=== PATIENT | female | born 1965 | race Caucasian/White ===

== ENCOUNTER 2017-04-03 17:57 | Emergency (ER) | payer MEDICAID ==
[~2017-04-03] VITALS: Ht 165.1 cm; Wt 68.0 kg
[~2017-04-03 17:57] MED LIST: ACYCLOVIR400 MG PO; ALBUTEROL2.5 MG/3 M HHN; AUGMENTIN 500-1 EACH PO; AUGMENTIN 875-1 EAC1 ORAL; BACTRIM DS TAB1 EAC1 ORAL; CORTISPORIN EAR10 M1 BOTH EARS; FLOXIN OTIC10 DROP OT; GUAIFENESIN-CO118 M1 ORAL; GUAIFENESIN-CO118 M1 PO; IMITREX25 MG PO; KEFLEX500 MG ORAL; KENALOG 0.025%15 GM SUBQ; NORCO 5-325 TA1 EACH ORAL; PREDNISONE10 M1 PO; VALIUM10 MG PO; VICODIN 5-5001 EACH PO; XOPENEX0.63 MG/3 IH; [UNRECOGNIZED DRUG - OTHER] BOTH EYES
[2017-04-03 18:04] VITALS: BP 131/83
[2017-04-03] MEDS ORDERED: ACETAMINOPHEN-1 EAC1 ORAL (18:18)
[2017-04-03] MEDS ORDERED: CLINDAMYCIN HC300 MG ORAL (18:18)
--- NOTE | 2017-04-03 18:19 | Emergency Room Report ---
History of Present Illness General Chief Complaint: Toothache Source: Patient, Medical Record Present Illness HPI 51 y.o female c/o tooth pain x 3 days. States she has hx of dental caries and has an appt with dentist on Wednesday. States she took augmentin but felt she was having AE from it and is asking for clindamycin instead. States that she is taking ibuprofen for her pain w/ mild relief. Worse with eating. No other modifying factors. Denies any current n/v/f/c/d, abd pain, back pain, neck pain , photophobia, phonophobia, angioedema, CP, SOB or headache. Allergies: Coded Allergies: DOXYCYCLINE (Verified Allergy, Mild, Rash, 12/14/11) AZITHROMYCIN (Verified Allergy, Unknown, 05/30/15) Patient History Past Medical History: see triage record Last Menstrual Period: menopause Reviewed Nursing Documentation: PMH: Agreed, PSxH: Agreed Nursing Documentation-PMH Past Medical History: No History, Except For Hx Cardiac Problems: No Hx Hypertension: No Hx Pacemaker: No Hx Asthma: Yes Hx COPD: No Hx Diabetes: No Hx Cancer: No Hx Gastrointestinal Problems: Yes - Hepatitis C Hx Dialysis: No Hx Neurological Problems: No Hx Cerebrovascular Accident: No Hx Seizures: No Review of Systems All Other Systems: negative except mentioned in HPI Physical Exam Vital Signs Date Time Temp Pulse Resp B/P (MAP) Pulse Ox O2 Delivery O2 Flow Rate FiO2 04/03/17 18:04 97.5 76 18 131/83 97 Room Air Sp02 EP Interpretation: reviewed, normal General Appearance: no apparent distress, alert, GCS 15, non-toxic Head: normocephalic, atraumatic Eyes: bilateral eye normal inspection, bilateral eye PERRL ENT: hearing grossly normal, normal pharynx, no angioedema, normal voice, other - poor dentitian with dental caries. Patient has tooth fracture of right lower molar. No abscess present. Neck: full range of motion, supple/symm/no masses Respiratory: chest non-tender, lungs clear, normal breath sounds, speaking full sentences Cardiovascular #1: regular rate, rhythm, no edema Musculoskeletal: gait/station normal Neurologic: alert, oriented x3, responsive, motor strength/tone normal, sensory intact, speech normal Psychiatric: judgement/insight normal, memory normal, mood/affect normal, no suicidal/homicidal ideation Skin: normal color, no rash, warm/dry, well hydrated Medical Decision Making PA Attestation Dr. Mishra is my supervising physician with whom patient management has been discussed with. Diagnostic Impression: Primary Impression: Fracture of tooth Qualified Codes: S02.5XXA - Fracture of tooth (traumatic), initial encounter for closed fracture Additional Impression: Dental caries ER Course Pt. presents to the ED c/o tooth pain Ddx considered but are not limited to tooth fracture, chipped tooth, dental caries, dental infection, tooth abscess, tooth avulsion Vital signs: are WNL, pt. is afebrile H&PE are most consistent with dental caries with fracture with active infection ORDERS: none required at this time, the diagnosis is clinical ED INTERVENTIONS: none required at this time. DISCHARGE: At this time pt. is stable for d/c to home. Will provide printed patient care instructions, and any necessary prescriptions. Care plan and follow up instructions have been discussed with the patient prior to discharge. Last Vital Signs Date Time Temp Pulse Resp B/P (MAP) Pulse Ox O2 Delivery O2 Flow Rate FiO2 04/03/17 18:04 97.5 76 18 131/83 97 Room Air Disposition: HOME, SELF-CARE Condition: Stable Scripts Acetaminophen With Codeine (T#3) (TYLENOL #3 TAB*) Y Tab 1 TAB ORAL Q12HR Y for For Pain for 3 Days, #6 TAB Prov: DONNIE BOOTH 04/03/17 Clindamycin Hcl (CLINDAMYCIN HCL) 300 Mg Capsule 300 MG ORAL TID for 10 Days, #30 CAP Prov: DONNIE BOOTH.Elaine 04/03/17 Patient Instructions: Dental Caries Additional Instructions: Keep mouth clean and rinse mouth out before and after each meal. Advised to use dental cement on tooth and to follow up with dentist within 24-48h. Take medication as directed. Patient should come back sooner if they experience any red areas that get bigger, more swollen, have pus draining from wound, or if the site becomes more painful. DONNIE BOOTH Apr 03, 2017 18:19
[2017-04-03 18:20] VITALS: BP 131/83
== END 2017-04-03 18:35 | disposition home or self-care (01) ==
LOC: EMR 18:30
DX: S02.5XXA Fracture of tooth (traumatic), initial encounter for closed fracture (principal); K02.9 Dental caries, unspecified; J45.909 Unspecified asthma, uncomplicated; Z88.1 Allergy status to other antibiotic agents
CPT/HCPCS: 99284

== ENCOUNTER 2017-04-05 18:25 | Emergency (ER) | payer MEDICAID ==
[~2017-04-05] VITALS: Ht 165.1 cm; Wt 68.0 kg
[~2017-04-05 18:25] MED LIST changes: +ACETAMINOPHEN-1 EAC1 ORAL; +CLINDAMYCIN HC300 MG ORAL
[2017-04-05 19:00] VITALS: BP 127/82
[2017-04-05] MEDS ORDERED: ACETAMINOPHEN-1 EAC1 ORAL (19:18)
[2017-04-05] MEDS ORDERED: AUGMENTIN 875-1 EAC1 ORAL (19:18)
[2017-04-05 19:30] VITALS: BP 127/82
--- NOTE | 2017-04-06 08:09 | Emergency Room Report ---
History of Present Illness General Chief Complaint: Pain Source: Patient Present Illness HPI Patient presents with complaints of pain to the right back dental region reports that she's had ongoing problems with this area She reports being seen by a dentist previously about 2 weeks ago However was not seen further secondary to her insurance Again seen recently and was told that she needed $2000 been ordered to be seen Patient was on antibiotics previously On her recent visit to the ER reports that the clindamycin was making her esophagus irritated and requesting change in medication Patient also reports that she is out of her pain medication Pain is 4/10 localized to the right back dental region lower molar Denies any difficulty speaking Allergies: Coded Allergies: DOXYCYCLINE (Verified Allergy, Mild, Rash, 12/14/11) AZITHROMYCIN (Verified Allergy, Unknown, 05/30/15) Patient History Past Medical History: see triage record Pertinent Family History: none Reviewed Nursing Documentation: PMH: Agreed, PSxH: Agreed Nursing Documentation-PMH Past Medical History: No History, Except For Hx Cardiac Problems: No Hx Hypertension: No Hx Pacemaker: No Hx Asthma: Yes Hx COPD: No Hx Diabetes: No Hx Cancer: No Hx Gastrointestinal Problems: Yes - Hepatitis C Hx Dialysis: No Hx Neurological Problems: No Hx Cerebrovascular Accident: No Hx Seizures: No Review of Systems All Other Systems: negative except mentioned in HPI Physical Exam Vital Signs Date Time Temp Pulse Resp B/P (MAP) Pulse Ox O2 Delivery O2 Flow Rate FiO2 04/05/17 18:59 97.2 82 18 127/82 99 Room Air Sp02 EP Interpretation: reviewed, normal General Appearance: well appearing, no apparent distress Head: normocephalic, atraumatic Eyes: bilateral eye PERRL, bilateral eye EOMI ENT: other - Patient has obvious dental decay and caries right back molar 1 and #2 dental region, no signs of any airway pathology gingiva is intact Neck: full range of motion, supple - no trismus Respiratory: normal inspection, lungs clear Cardiovascular #1: regular rate, rhythm, no murmur Musculoskeletal: normal inspection Neurologic: alert, oriented x3, responsive Skin: normal color, no rash Lymphatic: no adenopathy Medical Decision Making Diagnostic Impression: Primary Impression: dental alfredo ER Course No obvious signs of dental abscess or trismus patient has had repeat presentations to dentist in the emergency room at this time she was given a referral to dental clinics She has notified that secondary to [facility] pain medicine prescribing campaign She will require followup with primary physician for further medication And is stable for followup Last Vital Signs Date Time Temp Pulse Resp B/P (MAP) Pulse Ox O2 Delivery O2 Flow Rate FiO2 04/05/17 19:30 97.2 80 18 127/82 99 Room Air Status: unchanged Disposition: HOME, SELF-CARE Condition: Stable Scripts Acetaminophen With Codeine (T#3) (TYLENOL #3 TAB*) Y Tab 1 TAB ORAL Q8H Y for For Pain, #10 TAB Prov: JONATHAN STEWART D.O. 04/05/17 Amoxicillin/Potassium Clav 875-125* (AUGMENTIN 875-125 TABLET*) 1 Each Tablet 1 TAB ORAL TWICE A DAY, #14 TAB Prov: JONATHAN STEWART D.O. 04/05/17 Referrals: NOT CHOSEN [facility]/MD,REFERRING (PCP) Patient Instructions: Dental Caries, [id number] Additional Instructions: Patient is provided with the discharge instructions notified to follow up with primary doctor in the next 2-3 days otherwise return to the er with any worsening symptoms. Please note that this report is being documented using [employer] technology. This can lead to erroneous entry secondary to incorrect interpretation by the dictating instrument. JONATHAN STEWART D.O. Apr 06, 2017 08:09
== END 2017-04-05 19:34 | disposition home or self-care (01) ==
LOC: EMR 18:55
DX: K02.9 Dental caries, unspecified (principal); J45.909 Unspecified asthma, uncomplicated; Z88.1 Allergy status to other antibiotic agents
CPT/HCPCS: 99282

== ENCOUNTER 2017-09-11 18:30 | Emergency (ER) | payer MEDICAID ==
[~2017-09-11] VITALS: Ht 165.1 cm; Wt 66.7 kg
[2017-09-11 18:45] VITALS: BP 142/85
[2017-09-11] MEDS ORDERED: AUGMENTIN 875-1 EAC1 ORAL (18:58)
[2017-09-11] MEDS ORDERED: TYLENOL EXTRA500 MG ORAL (18:58)
--- NOTE | 2017-09-11 18:58 | Emergency Room Report ---
History of Present Illness General Chief Complaint: Toothache Source: Patient, Medical Record Present Illness HPI 51-year-old female patient presents ER complaining of tooth pain since Wednesday. Reports that she had tooth removal surgery at that time and was not discharged on any antibiotics. Reports she had some Augmentin at home that she took for a few days. Denies fever, chest pain, shortness of breath. Reports feeling infection. Requesting pain medication. Reports that she is taking ibuprofen 800 mg without relief of symptoms. Denies other acute symptoms. Reports since does not get pain medication at discharge. Denies vomiting. denies history of cardiac surgery. Denies heart disease. Denies neck pain. Denies trismus. Allergies: Coded Allergies: DOXYCYCLINE (Verified Allergy, Mild, Rash, 12/14/11) AZITHROMYCIN (Verified Allergy, Unknown, 05/30/15) Patient History Past Medical History: see triage record Last Menstrual Period: menopause Reviewed Nursing Documentation: PMH: Agreed; PSxH: Agreed Nursing Documentation-PMH Past Medical History: No History, Except For Hx Cardiac Problems: No Hx Hypertension: No Hx Pacemaker: No Hx Asthma: Yes Hx COPD: No Hx Diabetes: No Hx Cancer: No Hx Gastrointestinal Problems: Yes - Hepatitis C Hx Dialysis: No History Of Psychiatric Problem: No Hx Neurological Problems: No Hx Cerebrovascular Accident: No Hx Seizures: No Review of Systems All Other Systems: negative except mentioned in HPI Physical Exam Vital Signs Date Time Temp Pulse Resp B/P (MAP) Pulse Ox O2 Delivery O2 Flow Rate FiO2 09/11/17 18:35 98.6 94 16 142/85 95 Room Air 98.6 Sp02 EP Interpretation: reviewed, normal General Appearance: well appearing, no apparent distress, alert, GCS 15, non- toxic Head: normocephalic, atraumatic Eyes: bilateral eye normal inspection, bilateral eye PERRL ENT: hearing grossly normal, normal pharynx, no angioedema, normal voice, uvula midline, moist mucus membranes, other - right lower gum: mild edema, no erythema, tooth missing, mild swelling of right lower cheek; multiple caries present; no pharyngeal erythema, no tonsillar exudates, uvula midline Neck: full range of motion, no bony tend Respiratory: lungs clear, normal breath sounds, no rhonchi, no respiratory distress, no accessory muscle use, no wheezing, speaking full sentences, other - no stridor Cardiovascular #1: regular rate, rhythm, no edema Musculoskeletal: back normal, digits/nails normal, gait/station normal, normal range of motion, non-tender Neurologic: alert, oriented x3, responsive, motor strength/tone normal, sensory intact Psychiatric: mood/affect normal Skin: no rash Medical Decision Making PA Attestation Dr. Mishra is my supervising Physician whom patient management has been discussed with. Diagnostic Impression: Primary Impression: Toothache ER Course Pt. presents to the ED c/o dental infection. Ddx considered but are not limited to cellulitis, abscess, dental caries, gingivitis. Does not require imaging at this time. Vital signs: are WNL, pt. is afebrile ED INTERVENTIONS: CURES reports, no pain medication refills this month. Offered Tylenol #3, reports makes "stomach upset". Provided [place] for pain in ER. Will not provide Rx at discharge. Take Tylenol for pain. patient is not driving home. Nontoxic appearing, speaking full sentences, no active draining, mild edema, no trismus or vision changes. no abscess that requires draining. Will provide abx for infection. F/u with PCP and dentist for further treatment. Take Tylenol for pain. take full course of antibiotics, did not take one to 2 days of antibiotics from other prescriptions, may lead to abx resistance. Take medications as instructed. Patient able ambulate without difficulty, independently. DISCHARGE: -Rx provided for Augmentin -Rx provided for Tylenol At this time pt. is stable for d/c to home. Patient is resting comfortably, in no acute distress, nontoxic appearing, talking and smiling without difficulty. Will provide printed patient care instructions and any necessary prescriptions. Care plan and follow up instructions have been discussed with the patient prior to discharge. Patient instructed to follow-up with primary care provider in 2 - 3 days. Followup with dentist. Patient questions asked and answered. Patient reports understanding and agreement to treatment plan. ER precautions given. Patient instructed to return to ER immediately for any new or worsening of symptoms including but not limited to fever, worsening of pain symptoms, worsening of erythema, red streaking. - Please note that this Emergency Department Report was dictated using [employer] manager technology software, occasionally this can lead to erroneous entry secondary to interpretation by the dictation equipment. Last Vital Signs Date Time Temp Pulse Resp B/P (MAP) Pulse Ox O2 Delivery O2 Flow Rate FiO2 09/11/17 18:45 98.6 94 16 142/85 95 Room Air 98.6 Disposition: HOME, SELF-CARE Condition: Stable Scripts Amoxicillin/Potassium Clav 875-125* (AUGMENTIN 875-125 TABLET*) 1 Each Tablet 1 TAB ORAL TWICE A DAY for 7 Days, #14 TAB Prov: Spencer Melgar 09/11/17 Acetaminophen* (TYLENOL EXTRA STRENGTH*) 500 Mg Tablet 500 MG ORAL Q8H PRN for Prn Headache/Temp > 101, #30 TAB 0 Refills Prov: Spencer Melgar 09/11/17 Patient Instructions: Dental Pain Additional Instructions: Followup with primary care provider in 3 -5 days. Follow-up with dentist in 2-3 days. Take medications as directed. Patient questions asked and answered. ER precautions given, patient instructed to return to ER immediately for any new or worsening of symptoms. Spencer Melgar Sep 11, 2017 18:58
[2017-09-11 19:00] VITALS: BP 142/85
[2017-09-11] MEDS ORDERED: Norco 5mg/325mg tab ORAL ONE (19:00)
== END 2017-09-11 19:20 | disposition home or self-care (01) ==
LOC: EMR 19:00
DX: K08.89 Other specified disorders of teeth and supporting structures (principal); J45.909 Unspecified asthma, uncomplicated; Z86.19 Personal history of other infectious and parasitic diseases; Z88.1 Allergy status to other antibiotic agents
CPT/HCPCS: 99284

== ENCOUNTER 2017-10-18 16:55 | Emergency (ER) | payer MEDICAID ==
[~2017-10-18] VITALS: Ht 162.6 cm; Wt 68.0 kg
[~2017-10-18 16:55] MED LIST changes: +TYLENOL EXTRA500 MG ORAL
[2017-10-18] MEDS ORDERED: Albuterol/Ipratropium 3ml neb HHN ONE (17:45)
[2017-10-18 18:07] VITALS: BP 112/79
[2017-10-18] MEDS ORDERED: NITROFURANTOIN100 M2 ORAL (18:12)
[2017-10-18 18:21] LABS: ANION GAP 5 mmol/L (5-15); BLOOD UREA NITROGEN 15 mg/dL (7-18); CALCIUM 9.6 MG/DL (8.5-10.1); CARBON DIOXIDE 29 MMOL/L (21-32); CHLORIDE 104 MMOL/L (98-107); CREATININE 0.8 MG/DL (0.55-1.30); POTASSIUM 3.6 MMOL/L (3.5-5.1); SODIUM 138 MMOL/L (136-145)
[2017-10-18 18:25] LABS: APPEARANCE,URINE CLEAR; BILIRUBIN, URINE NEGATIVE (NEGATIVE); COLOR,URINE PALE YELLOW; GLUCOSE, URINE (UA) NEGATIVE (NEGATIVE); KETONES,URINE NEGATIVE (NEGATIVE); LEUKOCYTE ESTERASE ,URINE 2+ (NEGATIVE); NITRITE,URINE NEGATIVE (NEGATIVE); PH,URINE 5 (4.5-8.0); PROTEIN,URINE NEGATIVE (NEGATIVE); UROBILINOGEN,URINE NORMAL (NORMAL)
[2017-10-18 18:27] LABS: ALANINE AMINOTRANSFERASE 56 U/L (12-78); ALBUMIN 4.4 G/DL (3.4-5.0); ALBUMIN/GLOBULIN RATIO 1.2 (1.0-2.7); ALKALINE PHOSPHATASE 84 U/L (46-116); ASPARTATE AMINO TRANSFERASE 40 U/L (15-37); BILIRUBIN,TOTAL 0.4 MG/DL (0.2-1.0)
[2017-10-18 18:28] LABS: EOSINOPHILS % (AUTO) 2.8 % (0.0-3.0); HEMATOCRIT 44.5 % (37.0-47.0); HEMOGLOBIN 14.6 G/DL (12.0-16.0); LYMPHOCYTES % (AUTO) 32.5 % (20.0-45.0); MEAN CORPUSCULAR VOLUME 82 FL (80-99); MONOCYTES % (AUTO) 8.9 % (1.0-10.0); NEUTROPHILS % (AUTO) 54.9 % (45.0-75.0); PLATELET COUNT 247 K/UL (150-450); RED BLOOD COUNT 5.39 M/UL (4.20-5.40); RED CELL DISTRIBUTION WIDTH 11.9 % (11.6-14.8); WHITE BLOOD COUNT 8.9 K/UL (4.8-10.8)
--- NOTE | 2017-10-18 18:32 | Emergency Room Report ---
History of Present Illness General Chief Complaint: Chest Pain Source: Patient Present Illness HPI Patient is a 51-year-old female presented after increased dysuria as well as increased urinary frequency. Patient poorly had recently been on antibiotics for urinary tract infection. She stated she had recently been treated with Macrobid. The patient reports having been told that she needed discontinue Macrobid after developing some chest discomfort. Patient stated that she had been having continued the medication. Patient also been started on anti-yeast medication after reportedly having some issues. Patient states she had previously history of asthma as well as anxiety. Patient states that she takes Valium regularly. Allergies: Coded Allergies: DOXYCYCLINE (Verified Allergy, Mild, Rash, 12/14/11) AZITHROMYCIN (Verified Allergy, Unknown, 05/30/15) CEPHALEXIN (Verified Adverse Reaction, Mild, 10/18/17) pt states mild rash/sob occuring when using keflex Patient History Past Medical History: see triage record Last Menstrual Period: NA Now: No Reviewed Nursing Documentation: PMH: Agreed; PSxH: Agreed Nursing Documentation-PMH Past Medical History: No History, Except For Hx Cardiac Problems: No Hx Hypertension: No Hx Pacemaker: No Hx Asthma: Yes Hx COPD: No Hx Diabetes: No Hx Cancer: No Hx Gastrointestinal Problems: Yes - Hepatitis C Hx Dialysis: No Hx Neurological Problems: No Hx Cerebrovascular Accident: No Hx Seizures: No Review of Systems All Other Systems: negative except mentioned in HPI Physical Exam Vital Signs Date Time Temp Pulse Resp B/P (MAP) Pulse Ox O2 Delivery O2 Flow Rate FiO2 10/18/17 17:17 98.6 90 18 112/79 97 Room Air 98.6 Sp02 EP Interpretation: reviewed, normal General Appearance: normal inspection, well appearing, no apparent distress, alert, GCS 15 Head: atraumatic ENT: normal ENT inspection, hearing grossly normal, normal voice Neck: normal inspection, full range of motion, supple, no bony tend Respiratory: normal inspection, lungs clear, normal breath sounds, no respiratory distress, no retraction, no wheezing Cardiovascular #1: regular rate, rhythm, no edema Gastrointestinal: normal inspection, normal bowel sounds, non tender, soft, no guarding, no hernia Genitourinary: no CVA tenderness Musculoskeletal: normal inspection, back normal, normal range of motion Neurologic: normal inspection, alert, oriented x3, responsive, financial supervisor III-XII nml as tested, speech normal Psychiatric: normal inspection, judgement/insight normal, mood/affect normal Skin: normal inspection, normal color, no rash Medical Decision Making Diagnostic Impression: Primary Impression: UTI (urinary tract infection) ER Course Patient presented for dysuria as well as chest discomfort. Differential diagnosis included but was not limited to allergic reaction, reflux, urinary infection, acute coronary syndrome, pulmonary embolism, pneumonia, aortic dissection, shingles, pneumothorax, aortic dissection, esophageal rupture, pericarditis. Because of complexity of patient's case laboratory testing and imaging studies were ordered.EKG interpreted by me showed normal sinus rhythm without acute ST or T wave changes. The patient was noted to have prior history of anxiety. The laboratory testing was unremarkable. Patient does not have any definite evidence of sepsis. Patient was given prescription for antibiotics. She is advised to recheck urine in the next few days.The patient is advised to follow up with primary care doctor in 1-2 days. Patient is advised to return if any worsening condition or if any changes in status that are concerning. This report is dictated with [employer] molded parts inspector software which may occasionally lead to discrepancies related to use of this software. Labs Test 10/18/17 17:50 White Blood Count 8.9 K/UL (4.8-10.8) Red Blood Count 5.39 M/UL (4.20-5.40) Hemoglobin 14.6 G/DL (12.0-16.0) Hematocrit 44.5 % (37.0-47.0) Mean Corpuscular Volume 82 FL (80-99) Mean Corpuscular Hemoglobin 27.0 PG (27.0-31.0) Mean Corpuscular Hemoglobin Concent 32.7 G/DL (32.0-36.0) Red Cell Distribution Width 11.9 % (11.6-14.8) Platelet Count 247 K/UL (150-450) Mean Platelet Volume 7.6 FL (6.5-10.1) Neutrophils (%) (Auto) 54.9 % (45.0-75.0) Lymphocytes (%) (Auto) 32.5 % (20.0-45.0) Monocytes (%) (Auto) 8.9 % (1.0-10.0) Eosinophils (%) (Auto) 2.8 % (0.0-3.0) Basophils (%) (Auto) 1.0 % (0.0-2.0) Urine Color Pale yellow Urine Appearance Clear Urine pH 5 (4.5-8.0) Urine Specific [place] 1.015 (1.005-1.035) Urine Protein Negative (NEGATIVE) Urine Glucose (UA) Negative (NEGATIVE) Urine Ketones Negative (NEGATIVE) Urine Occult Blood 1+ (NEGATIVE) Urine Nitrite Negative (NEGATIVE) Urine Bilirubin Negative (NEGATIVE) Urine Urobilinogen Normal MG/DL (NORMAL) Urine Leukocyte Esterase 2+ (NEGATIVE) Urine RBC 0-2 /HPF (0 - 2) Urine WBC 2-4 /HPF (0 - 2) Urine Squamous Epithelial Cells Few /LPF (NONE/OCC) Urine Bacteria Few /HPF (NONE) Sodium Level 138 MMOL/L (136-145) Potassium Level 3.6 MMOL/L (3.5-5.1) Chloride Level 104 MMOL/L (98-107) Carbon Dioxide Level 29 MMOL/L (21-32) Anion Gap 5 mmol/L (5-15) Blood Urea Nitrogen 15 mg/dL (7-18) Creatinine 0.8 MG/DL (0.55-1.30) Estimat Glomerular Filtration Rate > 60 mL/min (>60) Glucose Level 96 MG/DL (74-106) Calcium Level 9.6 MG/DL (8.5-10.1) Total Bilirubin 0.4 MG/DL (0.2-1.0) Aspartate Amino Transf (AST/SGOT) 40 U/L (15-37) Alanine Aminotransferase (ALT/SGPT) 56 U/L (12-78) Alkaline Phosphatase 84 U/L (46-116) Troponin I 0.000 ng/mL (0.000-0.056) Total Protein 8.2 G/DL (6.4-8.2) Albumin 4.4 G/DL (3.4-5.0) Globulin 3.8 g/dL Albumin/Globulin Ratio 1.2 (1.0-2.7) EKG Diagnostic Results Rate: normal Rhythm: NSR ST Segments: no acute changes Last Vital Signs Date Time Temp Pulse Resp B/P (MAP) Pulse Ox O2 Delivery O2 Flow Rate FiO2 10/18/17 18:07 87 15 Room Air 10/18/17 18:07 98.6 112/79 99 98.6 Status: improved Disposition: HOME, SELF-CARE Condition: Stable Scripts Trimethoprim/Sulfamethoxazole 160/800* (BACTRIM DS TABLET*) 1 Each Tablet 1 TAB ORAL Q12H, #10 TAB 0 Refills Prov: Shai Mishra MD 10/18/17 Referrals: NOT CHOSEN IPA/,REFERRING (PCP) Shai Mishra MD Oct 18, 2017 18:32
[2017-10-18] MEDS ORDERED: BACTRIM DS TAB1 EAC1 ORAL (19:33)
[2017-10-18 19:54] VITALS: BP 109/81
[2017-10-18 20:00] VITALS: BP 112/79
--- NOTE | 2017-10-20 16:13 | Cardiology Report ---
APPROVED REPORT EKG Measurement Heart [id number] AL 182P-18 [id number] Normal sinus rhythm Junctional ST depression, probably normal Borderline ECG
== END 2017-10-18 20:00 | disposition home or self-care (01) ==
LOC: EMR 17:40
DX: N39.0 Urinary tract infection, site not specified (principal); Z88.1 Allergy status to other antibiotic agents; J45.909 Unspecified asthma, uncomplicated
CPT/HCPCS: 36415; 80053; 81003; 84484; 85025; 93005; 94640; 94664; 99283; J7620

== ENCOUNTER 2017-10-30 16:52 | Emergency (ER) | payer MEDICAID ==
[~2017-10-30] VITALS: Ht 162.6 cm; Wt 68.0 kg
[~2017-10-30 16:52] MED LIST changes: +NITROFURANTOIN100 M2 ORAL
[2017-10-30 17:05] VITALS: BP 106/72
[2017-10-30] MEDS: Phenazopyridine 200mg tab ORAL ONE ×2 (17:14→17:35)
[2017-10-30 17:38] LABS: APPEARANCE,URINE CLEAR; BILIRUBIN, URINE NEGATIVE (NEGATIVE); COLOR,URINE PALE YELLOW; GLUCOSE, URINE (UA) NEGATIVE (NEGATIVE); KETONES,URINE NEGATIVE (NEGATIVE); LEUKOCYTE ESTERASE ,URINE 2+ (NEGATIVE); NITRITE,URINE NEGATIVE (NEGATIVE); PH,URINE 5 (4.5-8.0); PROTEIN,URINE NEGATIVE (NEGATIVE); UROBILINOGEN,URINE NORMAL MG/DL (0.0-1.0)
--- NOTE | 2017-10-30 17:52 | Emergency Room Report ---
History of Present Illness General Chief Complaint: Female Urogenital Problems Source: Patient Present Illness HPI 51-year-old female presents to the emergency department complaining of 8 out of 10 in severity dysuria 4 days. Patient also reports that she is noticing burning sensation in the genital area also when not urinating. Patient reports she has been given several antibiotic medications for UTIs over the last few weeks. Patient states that some of them did not agree with first she did not finish the medications and the most recent one that she finished was Cipro and Levaquin. Patient denies fevers, chills, hematuria, urinary frequency or urgency. Patient denies open lesions, vaginal discharge, swollen tender lymph nodes, abdominal tenderness or rashes. Patient is also requesting refill of her Flovent as she has been out of her medication for quite some time and has been having exacerbation of her wheezing/asthma.Denies CP, Palpitations, LOC, AMS, dizziness, Changes in Vision, Sensation, paresthesias, or a sudden severe headache. Allergies: Coded Allergies: DOXYCYCLINE (Verified Allergy, Mild, Rash, 12/14/11) AZITHROMYCIN (Verified Allergy, Unknown, 05/30/15) NITROFURANTOIN (Verified Allergy, Unknown, 10/30/17) CEPHALEXIN (Verified Adverse Reaction, Mild, 10/18/17) pt states mild rash/sob occuring when using keflex Patient History Past Medical History: see triage record Past Surgical History: none Pertinent Family History: none Now: No Immunizations: UTD Reviewed Nursing Documentation: PMH: Agreed; PSxH: Agreed Nursing Documentation-PMH Past Medical History: No History, Except For Hx Cardiac Problems: No Hx Hypertension: No Hx Pacemaker: No Hx Asthma: Yes Hx COPD: No Hx Diabetes: No Hx Cancer: No Hx Gastrointestinal Problems: Yes - Hepatitis C Hx Dialysis: No Hx Neurological Problems: No Hx Cerebrovascular Accident: No Hx Seizures: No Review of Systems All Other Systems: negative except mentioned in HPI Physical Exam Vital Signs Date Time Temp Pulse Resp B/P (MAP) Pulse Ox O2 Delivery O2 Flow Rate FiO2 10/30/17 17:03 98.1 98 14 106/72 99 Room Air 98.1 Sp02 EP Interpretation: reviewed, normal General Appearance: no apparent distress, alert, GCS 15, non-toxic Head: normocephalic, atraumatic Eyes: bilateral eye normal inspection, bilateral eye PERRL ENT: hearing grossly normal, normal voice Neck: full range of motion Respiratory: chest non-tender, lungs clear, normal breath sounds, no rhonchi, no respiratory distress, no accessory muscle use, speaking full sentences, other - very scant expiratory wheezes Cardiovascular #1: regular rate, rhythm Gastrointestinal: non tender, soft Rectal: deferred Genitourinary: normal inspection, no CVA tenderness, adnexa normal, cervix normal, ext genitalia/vag normal, other - no appreciable d/c noted on exam Musculoskeletal: back normal, gait/station normal, normal range of motion, non- tender Neurologic: alert, oriented x3, responsive, motor strength/tone normal, sensory intact, normal gait, speech normal, grossly normal Psychiatric: judgement/insight normal Skin: normal color, no rash, warm/dry, well hydrated Medical Decision Making PA Attestation Dr. dennis is my supervising Physician whom patient management has been discussed with. Diagnostic Impression: Primary Impression: Vaginitis Qualified Codes: N76.0 - Acute vaginitis Additional Impression: Medication refill ER Course 51-year-old female presents to the emergency department complaining of 8 out of 10 in severity dysuria 4 days. Patient also reports that she is noticing burning sensation in the genital area also when not urinating. Patient reports she has been given several antibiotic medications for UTIs over the last few weeks. Patient states that some of them did not agree with first she did not finish the medications and the most recent one that she finished was Cipro and Levaquin. Patient denies fevers, chills, hematuria, urinary frequency or urgency. Patient denies open lesions, vaginal discharge, swollen tender lymph nodes, abdominal tenderness or rashes. Patient is also requesting refill of her Flovent as she has been out of her medication for quite some time and has been having exacerbation of her wheezing/asthma.Denies CP, Palpitations, LOC, AMS, dizziness, Changes in Vision, Sensation, paresthesias, or a sudden severe headache. Ddx considered but are not limited to UTi , Pyelo, STI, Stone, Cystitis, vaginal laceration, vaginitis. Vital signs: are WNL, pt. is afebrile H& PE are most consistent with: Vaginitis ORDERS: - UA labs are attached - Most indicative of contamination: presence of equal amounts of bacteria and squamous cells, no elevation in inflammatory markers, nitrite negative. - [place] : unremarkable no clue cells, no trich ED INTERVENTIONS: -d/w pt. results of labs. d/w pt. that we will treat clinically for yeast due to her symptoms and hx of multiple recent abx. Also d/w pt. that if she continues to have UTI symptoms she should also follow up with urology which needs to come from a referral from her PCP or [employer]. DISCHARGE: At this time pt. is stable for d/c to home. Will provide printed patient care instructions, and any necessary prescriptions. Care plan and follow up instructions have been discussed with the patient prior to discharge. discussed with the patient prior to discharge. Labs Test 10/30/17 17:12 Urine Color Pale yellow Urine Appearance Clear Urine pH 5 (4.5-8.0) Urine Specific [place] 1.025 (1.005-1.035) Urine Protein Negative (NEGATIVE) Urine Glucose (UA) Negative (NEGATIVE) Urine Ketones Negative (NEGATIVE) Urine Occult Blood 2+ (NEGATIVE) Urine Nitrite Negative (NEGATIVE) Urine Bilirubin Negative (NEGATIVE) Urine Urobilinogen Normal MG/DL (0.0-1.0) Urine Leukocyte Esterase 2+ (NEGATIVE) Urine RBC 0-2 /HPF (0 - 2) Urine WBC 0-2 /HPF (0 - 2) Urine Squamous Epithelial Cells Few /LPF (NONE/OCC) Urine Bacteria Few /HPF (NONE) Last Vital Signs Date Time Temp Pulse Resp B/P (MAP) Pulse Ox O2 Delivery O2 Flow Rate FiO2 10/30/17 17:05 98.1 98 14 106/72 99 Room Air 98.1 Disposition: HOME, SELF-CARE Condition: Stable Scripts Fluconazole (FLUCONAZOLE) 100 Mg Tablet 100 MG ORAL DAILY for 3 Days, #3 TAB 0 Refills Prov: Oumou Jamison 10/30/17 Fluticasone Propionate (Flovent Hfa) 10.6 Gm Aer.w.adap 2 PUFFS INH BID, #1 EA 0 Refills Prov: Oumou Jamison 10/30/17 Referrals: NOT CHOSEN IPA/,REFERRING (PCP) Patient Instructions: Vaginitis Additional Instructions: Take medications as directed. Follow up with a OBGYN within 3 days, even if your symptoms have resolved. Return sooner to ED if new symptoms occur, or current symptoms become worse. - Please note that this Emergency Department Report was dictated using [employer] service writer technology software, occasionally this can lead to erroneous entry secondary to interpretation by the dictation equipment. Oumou Jamison Oct 30, 2017 17:52
[2017-10-30] MEDS ORDERED: FLUCONAZOLE100 MG ORAL (18:37)
[2017-10-30] MEDS ORDERED: FLOVENT2 PUFF1 INH (18:37)
[2017-10-30 18:44] VITALS: BP 111/70
[2017-10-31] MEDS ORDERED: FLOVENT2 PUFF1 INH (16:31)
[2017-10-31] MEDS ORDERED: FLUCONAZOLE100 MG ORAL (16:33)
== END 2017-10-30 18:49 | disposition home or self-care (01) ==
LOC: EMR 17:10
DX: N76.0 Acute vaginitis (principal); J45.909 Unspecified asthma, uncomplicated; Z86.19 Personal history of other infectious and parasitic diseases
CPT/HCPCS: 81003; 87210; 99283

== ENCOUNTER 2018-01-11 16:25 | Emergency (ER) | payer MEDICAID ==
[~2018-01-11] VITALS: Ht 162.6 cm; Wt 65.8 kg
[~2018-01-11 16:25] MED LIST changes: +FLOVENT2 PUFF1 INH; +FLUCONAZOLE100 MG ORAL
[2018-01-11 16:30] VITALS: BP 122/78
[2018-01-11] MEDS ORDERED: Albuterol/Ipratropium 3ml neb HHN ONE (16:45)
[2018-01-11] MEDS ORDERED: ANTI-ITCH28 G1 TP (16:55)
[2018-01-11] MEDS ORDERED: PREDNISONE20 MG ORAL (16:55)
[2018-01-11] MEDS ORDERED: ALBUTEROL2.5 MG/3 M HHN (16:55)
--- NOTE | 2018-01-11 17:03 | Emergency Room Report ---
History of Present Illness General Chief Complaint: Asthma Source: Patient Present Illness HPI Patient is a 52-year-old female who presented after increased cough and difficulty breathing. Patient gradual onset of symptoms. Patient prior history of asthma. She denies any recent leg pain or swelling. She reports having some increased nonproductive cough. She additionally reports having some skin lesions to her lower legs which are itchy in nature. She states she was bitten by something. Allergies: Coded Allergies: DOXYCYCLINE (Verified Allergy, Mild, Rash, 12/14/11) AZITHROMYCIN (Verified Allergy, Unknown, 05/30/15) NITROFURANTOIN (Verified Allergy, Unknown, 10/30/17) CEPHALEXIN (Verified Adverse Reaction, Mild, 10/18/17) pt states mild rash/sob occuring when using keflex Patient History Past Medical History: see triage record Reviewed Nursing Documentation: PMH: Agreed; PSxH: Agreed Nursing Documentation-PMH Past Medical History: No History, Except For Hx Cardiac Problems: No Hx Hypertension: No Hx Pacemaker: No Hx Asthma: Yes Hx COPD: No Hx Diabetes: No Hx Cancer: No Hx Gastrointestinal Problems: Yes - Hepatitis C Hx Dialysis: No Hx Neurological Problems: No Hx Cerebrovascular Accident: No Hx Seizures: No Review of Systems All Other Systems: negative except mentioned in HPI Physical Exam Vital Signs Date Time Temp Pulse Resp B/P (MAP) Pulse Ox O2 Delivery O2 Flow Rate FiO2 01/11/18 16:29 98.1 83 17 122/78 98 Room Air 01/11/18 16:49 21 General Appearance: well appearing, no apparent distress, alert, GCS 15, non- toxic Head: normocephalic, atraumatic ENT: hearing grossly normal, normal voice Neck: full range of motion, supple Respiratory: no respiratory distress, speaking full sentences, wheezing Cardiovascular #1: normal inspection, normal peripheral pulses, regular rate, rhythm, no edema Musculoskeletal: normal inspection, back normal, no calf tenderness Neurologic: normal gait Psychiatric: mood/affect normal Skin: other - multiple papular lesions Medical Decision Making Diagnostic Impression: Primary Impression: Asthma exacerbation ER Course Patient is given nebulized albuterol with improvement. Patient was given steroids. Repeat lung exam showed improved breath sounds. Patient does not have any risk factors for deep venous thrombosis or pulmonary embolism The patient appears to have some excoriated skin rash or lower extremity which does not appear to be infected. The patient is given prescription for topical cortisone cream. She is advised to follow-up with her primary care physician for recheck of the wound Last Vital Signs Date Time Temp Pulse Resp B/P (MAP) Pulse Ox O2 Delivery O2 Flow Rate FiO2 01/11/18 16:53 Room Air 21 01/11/18 16:30 98.1 92 17 122/78 98 Status: improved Disposition: HOME, SELF-CARE Condition: Stable Scripts Prednisone* (PREDNISONE*) 20 Mg Tablet 40 MG ORAL DAILY, #10 TAB Prov: Shai Mishra MD 01/11/18 Hydrocortisone 2% Cream (ANTI-ITCH 2% CREAM) Y Cr 28 GM TP DAILY, #30 GM Prov: Shai Mishra MD 01/11/18 Albuterol Sulfate* (ALBUTEROL SULFATE HHN*) 2.5 Mg/3 Ml Vial.neb 2.5 MG HHN Q6H PRN for Bronchospasm for 7 Days, #30 VIAL Prov: Shai Mishra MD 01/11/18 Patient Instructions: Asthma, Adult Shai Mishra MD Jan 11, 2018 17:03
[2018-01-11 17:11] VITALS: BP 121/71
[2018-01-11 17:12] VITALS: BP 121/71
== END 2018-01-11 19:29 | disposition home or self-care (01) ==
LOC: EMR 17:27
DX: J45.901 Unspecified asthma with (acute) exacerbation (principal)
CPT/HCPCS: 94640; 94664; 99284; J7512; J7620

== ENCOUNTER 2018-01-21 17:30 | Emergency (ER) | payer MEDICAID ==
[~2018-01-21] VITALS: Ht 165.1 cm; Wt 65.8 kg
[~2018-01-21 17:30] MED LIST changes: +ANTI-ITCH28 G1 TP; +PREDNISONE20 MG ORAL
[2018-01-21 17:45] VITALS: BP 133/80
[2018-01-21] MEDS ORDERED: Albuterol/Ipratropium 3ml neb HHN ONE (18:00)
--- NOTE | 2018-01-21 18:54 | Emergency Room Report ---
History of Present Illness General Chief Complaint: Upper Respiratory Illness Source: Patient Present Illness Allergies: Coded Allergies: DOXYCYCLINE (Verified Allergy, Mild, Rash, 12/14/11) AZITHROMYCIN (Verified Allergy, Unknown, 05/30/15) NITROFURANTOIN (Verified Allergy, Unknown, 10/30/17) CEPHALEXIN (Verified Adverse Reaction, Mild, 10/18/17) pt states mild rash/sob occuring when using keflex Patient History Now: No Nursing Documentation-PMH Past Medical History: No History, Except For Hx Cardiac Problems: No Hx Hypertension: No Hx Pacemaker: No Hx Asthma: Yes Hx COPD: No Hx Diabetes: No Hx Cancer: No Hx Gastrointestinal Problems: Yes - Hepatitis C Hx Dialysis: No Hx Neurological Problems: No Hx Cerebrovascular Accident: No Hx Seizures: No Physical Exam Vital Signs Date Time Temp Pulse Resp B/P (MAP) Pulse Ox O2 Delivery O2 Flow Rate FiO2 01/21/18 17:34 98.2 82 20 133/80 97 Room Air 01/21/18 18:10 21 Medical Decision Making ER Course I evaluated Ms. ozuna. She's had pleuritic symptoms with cough shortness of breath for the past several months. Will treat with antibiotics due to prolonged symptoms. She recently finished a course of steroids last week. No indication of pulmonary embolism no tachycardia. Last Vital Signs Date Time Temp Pulse Resp B/P (MAP) Pulse Ox O2 Delivery O2 Flow Rate FiO2 01/21/18 18:11 87 20 Room Air 21 01/21/18 18:10 99 01/21/18 17:34 98.2 133/80 Sheron Mancia MD Jan 21, 2018 18:54
--- NOTE | 2018-01-21 18:57 | Diagnostic Imaging Report ---
EXAM: XR Chest, 1 View CLINICAL HISTORY: PAIN TECHNIQUE: Frontal view of the chest. COMPARISON: No relevant prior studies available. FINDINGS: Lungs: Unremarkable. No consolidation. Pleural space: Unremarkable. No pneumothorax. Heart: Unremarkable. No cardiomegaly. Mediastinum: Unremarkable. Bones/joints: Unremarkable. IMPRESSION: Normal chest x-ray.
--- NOTE | 2018-01-21 19:28 | Emergency Room Report ---
History of Present Illness General Chief Complaint: Upper Respiratory Illness Source: Patient Present Illness HPI 52-year-old female patient presents ER complaining of shortness of breath for the past few weeks. reports history of asthma. Denies history of [place]. Patient reports pain on the left side of her chest. Patient reports previously seen. Allergies: Coded Allergies: DOXYCYCLINE (Verified Allergy, Mild, Rash, 12/14/11) AZITHROMYCIN (Verified Allergy, Unknown, 05/30/15) NITROFURANTOIN (Verified Allergy, Unknown, 10/30/17) CEPHALEXIN (Verified Adverse Reaction, Mild, 10/18/17) pt states mild rash/sob occuring when using keflex Patient History Past Medical History: see triage record Now: No Reviewed Nursing Documentation: PMH: Agreed; PSxH: Agreed Nursing Documentation-PMH Past Medical History: No History, Except For Hx Cardiac Problems: No Hx Hypertension: No Hx Pacemaker: No Hx Asthma: Yes Hx COPD: No Hx Diabetes: No Hx Cancer: No Hx Gastrointestinal Problems: Yes - Hepatitis C Hx Dialysis: No Hx Neurological Problems: No Hx Cerebrovascular Accident: No Hx Seizures: No Review of Systems All Other Systems: negative except mentioned in HPI Physical Exam Vital Signs Date Time Temp Pulse Resp B/P (MAP) Pulse Ox O2 Delivery O2 Flow Rate FiO2 01/21/18 17:34 98.2 82 20 133/80 97 Room Air 01/21/18 18:10 21 Sp02 EP Interpretation: reviewed, normal General Appearance: well appearing, no apparent distress, alert, GCS 15, non- toxic Head: normocephalic, atraumatic Eyes: bilateral eye normal inspection, bilateral eye PERRL ENT: hearing grossly normal, normal pharynx, no angioedema, normal voice, uvula midline, moist mucus membranes Neck: full range of motion Respiratory: lungs clear, normal breath sounds, no rhonchi, no respiratory distress, no accessory muscle use, no wheezing, speaking full sentences, other - no stridor Cardiovascular #1: regular rate, rhythm, no edema Gastrointestinal: non tender, soft, no mass, non-distended, no guarding, no rebound Musculoskeletal: back normal, digits/nails normal, gait/station normal, normal range of motion, non-tender Neurologic: alert, oriented x3, responsive, motor strength/tone normal, sensory intact Psychiatric: mood/affect normal Skin: no rash Medical Decision Making PA Attestation Dr. Mancia is my supervising Physician whom patient management has been discussed with. Diagnostic Impression: Primary Impression: Atypical pneumonia Additional Impression: Asthma exacerbation ER Course Pt presents to ED c/o asthma symptoms. DDX considered but are not limited to asthma, viral URI, influenza, bronchitis, pneumonia. No rhonchi or rales, patient afebrile, low suspicion for pneumonia at this time , does not require x-rays or imaging. VITAL SIGNS are WNL, patient is afebrile. Ordered breathing treatment and medication. ER COURSE Patient provided with prednisone Duoneb breathing treatment provided. Following treatment patient states no longer having difficulty with breathing. Patient is resting comfortably in no acute distress. DISCHARGE: -Rx given for Prednisone. -Rx provided for Albuterol MDI. -Rx provided for Tessalon Perles At this time pt is stable for d/c to home. Patient is resting comfortably in no acute distress, nontoxic appearing, able to answer questions without difficulty. Patient to take medications as instructed Will provide with patient care instructions and any necessary prescriptions. Care plan and follow-up instructions provided. Patient instructed to follow-up with primary care provider in 3 - 5 days. Patient questions asked and answered. Patient reports understanding and agreement to treatment plan. ER precautions given. Patient instructed to return to ER immediately for any new or worsening of symptoms including but not limited to increasing SOB, persistent fever. - Please note that this Emergency Department Report was dictated using [employer]istant general manager technology software, occasionally this can lead to erroneous entry secondary to interpretation by the dictation equipment. Last Vital Signs Date Time Temp Pulse Resp B/P (MAP) Pulse Ox O2 Delivery O2 Flow Rate FiO2 01/21/18 18:11 87 20 Room Air 21 01/21/18 18:10 99 01/21/18 17:45 98.2 133/80 Disposition: HOME, SELF-CARE Condition: Scripts Levofloxacin* (LEVAQUIN*) 750 Mg Tablet 750 MG ORAL DAILY for 7 Days, #7 TAB Prov: Spencer Melgar P.A. 01/21/18 Prednisone* (PREDNISONE*) 20 Mg Tablet 40 MG ORAL DAILY for 4 Days, #8 TAB Prov: Spencer Melgar P.A. 01/21/18 Patient Instructions: Asthma, Adult, [id number], Community-Acquired Pneumonia , Adult, [id number] Additional Instructions: Followup with primary care provider in 3 -5 days. Take medications as directed. Patient questions asked and answered. ER precautions given, patient instructed to return to ER immediately for any new or worsening of symptoms. Spencer Melgar Jan 21, 2018 19:28
[2018-01-21] MEDS ORDERED: PREDNISONE20 MG ORAL (19:37)
[2018-01-21] MEDS ORDERED: LEVAQUIN750 MG ORAL (19:37)
[2018-01-21] MEDS ORDERED: Levofloxacin 500mg tab ORAL ONE (19:45)
[2018-01-21 20:10] VITALS: BP 133/80
== END 2018-01-21 20:10 | disposition home or self-care (01) ==
LOC: EMR 18:11
DX: R05 Cough (principal); R06.02 Shortness of breath; Z88.1 Allergy status to other antibiotic agents; J45.909 Unspecified asthma, uncomplicated; B19.20 Unspecified viral hepatitis C without hepatic coma
CPT/HCPCS: 71045; 94640; 94664; 99284; J7512; J7620

== ENCOUNTER 2018-03-06 17:13 | Emergency (ER) | payer MEDICAID ==
[~2018-03-06] VITALS: Ht 162.6 cm; Wt 71.7 kg
[~2018-03-06 17:13] MED LIST changes: +LEVAQUIN750 MG ORAL
[2018-03-06] MEDS ORDERED: NKM (17:29)
[2018-03-06 17:40] VITALS: BP 108/77
--- NOTE | 2018-03-06 18:10 | Emergency Room Report ---
History of Present Illness General Chief Complaint: Pain Source: Medical Record Present Illness HPI 52-year-old female patient presents the ER complaining of right knee pain for the past 2 weeks. Patient reports pain symptoms have been increasing in intensity. Denies acute injury or trauma. Reports pain is worse with flexion and movement. Reports that when she bends down to clear her cat's litter box as she begins to stand up she notes that it is more difficult to do so. Denies erythema or edema. Denies history of gout. Reports has been taking Tylenol for relief of symptoms. Patient is requesting a few days of Vicodin medication to help with pain symptoms. Declining codeine medication. Denies fever, chest pain, shortness of breath. Allergies: Coded Allergies: DOXYCYCLINE (Verified Allergy, Mild, Rash, 12/14/11) AZITHROMYCIN (Verified Allergy, Unknown, 05/30/15) NITROFURANTOIN (Verified Allergy, Unknown, 10/30/17) CEPHALEXIN (Verified Adverse Reaction, Mild, 10/18/17) pt states mild rash/sob occuring when using keflex Patient History Past Medical History: see triage record Reviewed Nursing Documentation: PMH: Agreed; PSxH: Agreed Nursing Documentation-PMH Past Medical History: No History, Except For Hx Cardiac Problems: No Hx Hypertension: No Hx Pacemaker: No Hx Asthma: Yes Hx COPD: No Hx Diabetes: No Hx Cancer: No Hx Gastrointestinal Problems: Yes - Hepatitis C Hx Dialysis: No Hx Neurological Problems: No Hx Cerebrovascular Accident: No Hx Seizures: No Review of Systems All Other Systems: negative except mentioned in HPI Physical Exam Vital Signs Date Time Temp Pulse Resp B/P (MAP) Pulse Ox O2 Delivery O2 Flow Rate FiO2 03/06/18 17:26 98.2 84 14 108/77 97 Room Air Sp02 EP Interpretation: reviewed, normal General Appearance: well appearing, no apparent distress, alert, GCS 15, non- toxic Head: normocephalic, atraumatic Eyes: bilateral eye normal inspection, bilateral eye PERRL ENT: hearing grossly normal, normal pharynx, no angioedema, normal voice, uvula midline, moist mucus membranes Neck: full range of motion Respiratory: lungs clear, normal breath sounds, no rhonchi, no respiratory distress, no accessory muscle use, no wheezing, speaking full sentences Cardiovascular #1: regular rate, rhythm, no edema Musculoskeletal: back normal, digits/nails normal, gait/station normal, normal range of motion, no calf tenderness, Esequiel's Sign negative, other - Negative bulge sign, negative anterior posterior drawer, no laxity with varus or valgus stress, no warmth to touch, no gouty tophi, no deformity, tender - Tenderness over medial knee Neurologic: alert, oriented x3, responsive, motor strength/tone normal, sensory intact Psychiatric: mood/affect normal Skin: no rash Medical Decision Making PA Attestation Dr. Mishra is my supervising Physician whom patient management has been discussed with. Diagnostic Impression: Primary Impression: Right knee DJD ER Course Pt. presents to the ED c/o right knee pain. Ddx considered but are not limited to fracture, sprain, strain, contusion, dislocation. No erythema, no warmth to touch, no fever, nontoxic appearing, low suspicion for septic joint. Soft compartments, no pulselessness, no pallor, no paresthesias, low suspicion for compartment syndrome at this time. Vital signs: are WNL, pt. is afebrile Ordered X-ray and pain medication. ER COURSE Provided with pain medication. An X-ray of the right knee shows no acute fracture per the preliminary reading, narrow joint space noted, consistent with degenerative disc disease. Patient declined splint and crutches. Patient instructed on RICE method: rest, ice, compression, elevation. Patient instructed on rest, ice and heat. Patient instructed to be WBAT Contact information for orthopedic urgent care provided, follow-up with urgent care if unable to followup with primary care provider and get referral to orthopedic brace maker. Followup with primary care provider. Discuss referral to ortho/pain management/ PT as needed. Discuss further imaging with MRI/CT as needed. DISCHARGE: -Rx provided for Tylenol for pain symptoms. At this time pt. is stable for d/c to home. Patient is resting comfortably, in no acute distress, nontoxic appearing, talking without difficulty. Will provide printed patient care instructions, and any necessary prescriptions. Patient instructed to follow with primary care provider in 3 - 5 days and to request further follow-up as needed. Care plan and follow up instructions have been discussed with the patient prior to discharge. Take medications as directed. Patient questions asked and answered. Patient reports understanding and agreement to treatment plan. ER precautions given, patient instructed to return to ER immediately for any new or worsening of symptoms. - Please note that this Emergency Department Report was dictated using [employer]weld engineer technology software, occasionally this can lead to erroneous entry secondary to interpretation by the dictation equipment. Other X-Ray Diagnostic Results Other X-Ray Diagnostic Results : X-Ray ordered: Right knee # of Views/Limited Vs Complete: 3 View Indication: Pain EP Interpretation: Yes PA Xray: Interpretation reviewed, by supervising MD, and agrees with findings. Interpretation: no dislocation, no soft tissue swelling, no fractures, other - Decreased joint space Impression: No acute disease PA Scribe Text Marko Melgar PA-C Last Vital Signs Date Time Temp Pulse Resp B/P (MAP) Pulse Ox O2 Delivery O2 Flow Rate FiO2 03/06/18 17:40 98.2 85 14 108/77 97 Room Air Disposition: HOME, SELF-CARE Condition: Stable Scripts Acetaminophen* (TYLENOL EXTRA STRENGTH*) 500 Mg Tablet 500 MG ORAL Q8H PRN for Prn Headache/Temp > 101, #30 TAB 0 Refills Prov: Spencer Melgar 03/06/18 Patient Instructions: Degenerative Disk Disease Additional Instructions: Patient instructed to follow up with primary care provider and discuss further referral to orthopedics/physical therapy/pain management as needed. If unable to followup with PCP, followup with orthopedic urgent care in 5-7 days , call to schedule appointment. Patient instructed on RICE method: rest, ice, compression, elevation. Patient instructed to WBAT. X-ray showed no acute fracture or disease, shows decreased joint space consistent with degenerative disc disease. Take medications as directed. Patient questions asked and answered. ER precautions given, patient instructed to return to ER immediately for any new or worsening of symptoms. [facility] [address] [facility] [address] [facility], [address] [email or web address] Spencer Melgar Mar 06, 2018 18:10
[2018-03-06] MEDS ORDERED: Acetaminophen 500mg (ES) tab ORAL ONE (18:30)
[2018-03-06 18:50] VITALS: BP 115/76
[2018-03-06] MEDS ORDERED: TYLENOL EXTRA500 MG ORAL (18:50)
--- NOTE | 2018-03-07 16:04 | Diagnostic Imaging Report ---
Indication: Right knee pain Technique: 3 views of the right knee Comparison: None Findings: No suprapatellar effusion. No acute fractures. No dislocations. The joint spaces are preserved Impression: Negative
== END 2018-03-06 18:50 | disposition home or self-care (01) ==
LOC: EMR 18:12
DX: M17.11 Unilateral primary osteoarthritis, right knee (principal); J45.909 Unspecified asthma, uncomplicated; B19.20 Unspecified viral hepatitis C without hepatic coma; Z88.1 Allergy status to other antibiotic agents
CPT/HCPCS: 99283

== ENCOUNTER 2018-04-18 16:21 | Emergency (ER) | payer MEDICAID ==
[~2018-04-18] VITALS: Ht 162.6 cm; Wt 68.0 kg
[~2018-04-18 16:21] MED LIST changes: +NKM
--- NOTE | 2018-04-18 16:32 | NUR ---
ED Nurse Note: PT WENT TO RESTROOM AFTER TRIAGE AND RN INSTRUCTED PT TO COLLECT URINE SAMPLE
[2018-04-18 16:40] VITALS: BP 141/83
--- NOTE | 2018-04-18 16:40 | NUR ---
ED Nurse Note: Pt walked in ED c/o right leg pain and swelling since yesterday but pt states she had torn ligament on her right knee and hasn't been walking lately. pt AA&ox 4, gcs=15, skin warm and dry, resp even and unlabored, -n/v/d, ambulates w/ steady gait, no tenderness noted at this time, BLE warm to touch. will cont monitor.
--- NOTE | 2018-04-18 17:48 | NUR ---
ED Nurse Note: called ultrasound.
[2018-04-18] MEDS ORDERED: TYLENOL EXTRA500 MG ORAL (19:19)
--- NOTE | 2018-04-18 19:19 | Emergency Room Report ---
History of Present Illness General Chief Complaint: Pain Source: Patient Present Illness HPI 52-year-old female patient presents the ER complaining of right knee swelling and pain times 1 week. Patient reports that she is currently being seen by her radiation protection specialist and was told that she has a meniscal tear in her right knee. Reports that she informed him of the right knee swelling and she was told to report to the ER to have an ultrasound to rule out DVT performed. Reports she is not taking blood thinner medication. Denies history of blood clot. Denies recent periods of immobilization. Denies recent travel. Denies fever, chest pain, shortness of breath. Denies calf pain. Denies redness or erythema. Denies recent injury or accident. Reports pain with ambulation. Denies hx of CHF or heart disease. Denies hx of diabetes. Allergies: Coded Allergies: DOXYCYCLINE (Verified Allergy, Mild, Rash, 04/18/18) AZITHROMYCIN (Verified Allergy, Unknown, 04/18/18) NITROFURANTOIN (Verified Allergy, Unknown, 04/18/18) CEPHALEXIN (Verified Adverse Reaction, Mild, 04/18/18) pt states mild rash/sob occuring when using keflex Patient History Past Medical History: see triage record Reviewed Nursing Documentation: PMH: Agreed; PSxH: Agreed Nursing Documentation-PMH Past Medical History: No History, Except For Hx Cardiac Problems: No Hx Hypertension: No Hx Pacemaker: No Hx Asthma: Yes Hx COPD: No Hx Diabetes: No Hx Cancer: No Hx Gastrointestinal Problems: Yes - Hepatitis C Hx Dialysis: No Hx Neurological Problems: No Hx Cerebrovascular Accident: No Hx Seizures: No Review of Systems All Other Systems: negative except mentioned in HPI Physical Exam Vital Signs Date Time Temp Pulse Resp B/P (MAP) Pulse Ox O2 Delivery O2 Flow Rate FiO2 04/18/18 16:28 98.2 91 16 141/83 97 Room Air Sp02 EP Interpretation: reviewed, normal General Appearance: well appearing, no apparent distress, alert, GCS 15, non- toxic Head: normocephalic, atraumatic Eyes: bilateral eye normal inspection, bilateral eye PERRL ENT: hearing grossly normal, normal pharynx, no angioedema, normal voice, uvula midline, moist mucus membranes Neck: full range of motion Respiratory: lungs clear, normal breath sounds, no rhonchi, no respiratory distress, no accessory muscle use, no wheezing, speaking full sentences Cardiovascular #1: regular rate, rhythm, no edema Cardiovascular #2: 2+ dorsalis pedis (R), 2+ dorsalis pedis (L) Musculoskeletal: back normal, digits/nails normal, gait/station normal, normal range of motion, non-tender, no calf tenderness, Esequiel's Sign negative, swelling - mild right knee swelling extending to proximal tib/fib, no pitting, no erythema, no warmth to touch, other - no laxity with varus or valgus stress Neurologic: alert, oriented x3, responsive, motor strength/tone normal, sensory intact Psychiatric: mood/affect normal Skin: no rash Medical Decision Making PA Attestation Dr. Ferreira is my supervising Physician whom patient management has been discussed with. Diagnostic Impression: Primary Impression: Swollen R knee ER Course Pt. presents to the ED c/o right knee and lower leg swelling x1 week. Ddx considered but are not limited to fracture, sprain, strain, contusion, dislocation, DVT, bursitis, edema. No erythema, no warmth to touch, no fever, nontoxic appearing, low suspicion for septic joint. Soft compartments, no pulselessness, no pallor, no paresthesias, low suspicion for compartment syndrome at this time. Vital signs: are WNL, pt. is afebrile ER COURSE Provided with pain medication. Venous duplex ultrasound of the right lower extremity was negative for DVT. Follow-up with primary care provider and with a specialist to discuss further treatment and referral. Discussed need for knee drainage at that time. No acute injury or trauma, does not require x-ray, low suspicion for fracture. JOSE M wrap was applied to the right knee and was checked afterwards by me showing good alignment and support with distal neurovascular functioning intact. Patient declined crutches. Patient instructed on RICE method: rest, ice, compression, elevation. Patient instructed to be WBAT Contact information for orthopedic urgent care provided, follow-up with urgent care if unable to followup with primary care provider and get referral to radiation protection specialist. Followup with primary care provider. Discuss referral to ortho/pain management/ PT as needed. Discuss further imaging with MRI/CT as needed. DISCHARGE: At this time pt. is stable for d/c to home. Patient is resting comfortably, in no acute distress, nontoxic appearing, talking without difficulty. Will provide printed patient care instructions, and any necessary prescriptions. Patient instructed to follow with primary care provider in 3 - 5 days and to request further follow-up as needed. Care plan and follow up instructions have been discussed with the patient prior to discharge. Take medications as directed. Patient questions asked and answered. Patient reports understanding and agreement to treatment plan. ER precautions given, patient instructed to return to ER immediately for any new or worsening of symptoms. - Please note that this Emergency Department Report was dictated using [employer] sales broker technology software, occasionally this can lead to erroneous entry secondary to interpretation by the dictation equipment. CT/MRI/US Diagnostic Results CT/MRI/US Diagnostic Results : Imaging Test Ordered: right lower extremity venous duplex US Impression negative for DVT Last Vital Signs Date Time Temp Pulse Resp B/P (MAP) Pulse Ox O2 Delivery O2 Flow Rate FiO2 04/18/18 16:40 98.4 67 16 141/83 100 Room Air Disposition: HOME, SELF-CARE Condition: Stable Scripts Acetaminophen* (TYLENOL EXTRA STRENGTH*) 500 Mg Tablet 500 MG ORAL Q8H PRN for Prn Headache/Temp > 101, #30 TAB 0 Refills Prov: Spencer Melgar 04/18/18 Referrals: NON PHYSICIAN (PCP) Patient Instructions: Knee Pain, [id number] Additional Instructions: Patient instructed to follow up with primary care provider and discuss further referral to orthopedics/physical therapy/pain management as needed. If unable to followup with PCP, followup with orthopedic urgent care in 5-7 days , call to schedule appointment. Patient instructed on RICE method: rest, ice, compression, elevation. Patient instructed to WBAT. Take medications as directed. Patient questions asked and answered. ER precautions given, patient instructed to return to ER immediately for any new or worsening of symptoms. [facility] [address] [facility] [address] [facility], [address] [email or web address] Spencer Melgar Apr 18, 2018 19:19
[2018-04-18 19:22] VITALS: BP 145/83
--- NOTE | 2018-04-18 19:22 | NUR ---
ED Nurse Note: pt cleared to d/c per ER provider, pt discharge instruction provided w/prescription, pt advised to follow up with pcp or return to ed if s/s worsen or new s/s develop, pt education done via discussion and hand out wristband removed, pt verbalized understanding and agrees with plan. pt vss, ambulatory w/ steady gait, resp even and unlabored, airway intact, all belongings left with pt.
--- NOTE | 2018-04-19 12:54 | Diagnostic Imaging Report ---
Indication: Right lower extremity pain and swelling. Technique: Duplex Doppler imaging performed from the right common femoral vein to the popliteal vein. FINDINGS: Normal compressibility demonstrated from the common femoral vein to the popliteal vein. Respiratory phasicity and good augmentation demonstrated on waveform analysis. There is no evidence of thrombosis. IMPRESSION: No evidence of deep venous thrombosis within the right the lower extremity.
== END 2018-04-18 19:22 | disposition home or self-care (01) ==
LOC: EMR 18:00
DX: M79.89 Other specified soft tissue disorders (principal); M25.561 Pain in right knee; J45.909 Unspecified asthma, uncomplicated; Z88.1 Allergy status to other antibiotic agents; Z88.8 Allergy status to other drugs, medicaments and biological substances
CPT/HCPCS: 93971; 99284

== ENCOUNTER 2018-05-08 17:40 | Emergency (ER) | payer MEDICAID ==
[~2018-05-08] VITALS: Ht 162.6 cm; Wt 68.0 kg
[2018-05-08 17:56] VITALS: BP 122/56
--- NOTE | 2018-05-08 17:59 | NUR ---
ED Nurse Note: pt walked in to ER c/o Rt knee pain 09/21. pt aao x4, ambulatory, skin clean and intact, and calm.
--- NOTE | 2018-05-08 18:20 | Emergency Room Report ---
History of Present Illness General Chief Complaint: Pain Source: Patient (Gifty Savage) Present Illness HPI 52-year-old female with history of right knee pain and meniscus tear as well as herpes conjunctivitis here complaining of worsening knee pain and wanting a cane. Patient was here 3 weeks ago due to excessive swelling of the right lower leg, venous Doppler was done and was negative for DVT. Patient then went to her primary care physician and did MRI of right knee was examined posterior meniscus tear right knee. They offer her steroid injections or surgery. Patient has been taking Absecon for pain as she mentions that Tylenol is not covered by her insurance. Last time she was here she was offered a cane or crutches and she didn't accept. She was either a cane or crutches today. Patient complains of 10 pain in the right knee and has been putting pressure on the knee ever since MRI was done. Denies tingling and numbness. She further complains of pruritus of the right eye and she mentions that she has a history of herpes conjunctivitis and to use to get a cycle of eardrops for her eye. She has a bottle of acyclovir oral tablets and has been taking one a day every day. His any blurred vision and eye discharge. Denies all other injuries, chest pain, palpitation, SOB, abdominal pain (Gifty Savage) Allergies: Coded Allergies: DOXYCYCLINE (Verified Allergy, Mild, Rash, 04/18/18) AZITHROMYCIN (Verified Allergy, Unknown, 04/18/18) NITROFURANTOIN (Verified Allergy, Unknown, 04/18/18) CEPHALEXIN (Verified Adverse Reaction, Mild, 04/18/18) pt states mild rash/sob occuring when using keflex Patient History Past Medical History: see triage record Past Surgical History: unable to obtain Now: No Immunizations: UTD Reviewed Nursing Documentation: PMH: Agreed; PSxH: Agreed (Gifty Savage) Nursing Documentation-PMH Hx Cardiac Problems: No Hx Hypertension: No Hx Pacemaker: No Hx Asthma: Yes Hx COPD: No Hx Diabetes: No Hx Cancer: No Hx Gastrointestinal Problems: Yes - Hepatitis C Hx Dialysis: No Hx Neurological Problems: No Hx Cerebrovascular Accident: No Hx Seizures: No (Gifty Savage) Review of Systems All Other Systems: negative except mentioned in HPI (Gifty Savage) Physical Exam Vital Signs Date Time Temp Pulse Resp B/P (MAP) Pulse Ox O2 Delivery O2 Flow Rate FiO2 05/08/18 17:42 98.1 76 15 122/5 96 Room Air Sp02 EP Interpretation: reviewed, normal General Appearance: normal inspection, well appearing, no apparent distress Head: normocephalic, atraumatic Eyes: bilateral eye normal inspection, bilateral eye PERRL, bilateral eye other - no visible keratosis observed no discharge noted in her right eye. ENT: normal ENT inspection, hearing grossly normal, normal pharynx Neck: normal inspection, full range of motion, supple Respiratory: normal inspection Cardiovascular #1: normal inspection, normal peripheral pulses, regular rate, rhythm, no edema, no murmur Cardiovascular #2: 2+ dorsalis pedis (R), 2+ dorsalis pedis (L) Gastrointestinal: normal inspection, normal bowel sounds, non tender, soft Genitourinary: no CVA tenderness Musculoskeletal: back normal, digits/nails normal, swelling - Right knee and right lower extremity below the knee Neurologic: normal inspection, alert, oriented x3 Psychiatric: normal inspection, judgement/insight normal, memory normal Skin: normal inspection, normal color, no rash, warm/dry Lymphatic: normal inspection, no adenopathy (Gifty Savage) Medical Decision Making PA Attestation All diagnoses and treatment plans are reviewed and discussed with my supervising physician Dr. Ramos (Gifty Savage) Diagnostic Impression: Primary Impression: Right knee meniscal tear Additional Impressions: Effusion, right knee Herpesviral conjunctivitis ER Course 52-year-old female with history of right knee pain and meniscus tear as well as herpes conjunctivitis here complaining of worsening knee pain and wanting a cane. Patient was here 3 weeks ago due to excessive swelling of the right lower leg, venous Doppler was done and was negative for DVT. Patient then went to her primary care physician and did MRI of right knee was examined posterior meniscus tear right knee. They offer her steroid injections or surgery. Patient has been taking Absecon for pain as she mentions that Tylenol is not covered by her insurance. Last time she was here she was offered a cane or crutches and she didn't accept. She was either a cane or crutches today. Patient complains of 10 pain in the right knee and has been putting pressure on the knee ever since MRI was done. Denies tingling and numbness. She further complains of pruritus of the right eye and she mentions that she has a history of herpes conjunctivitis and to use to get a cycle of eardrops for her eye. She has a bottle of acyclovir oral tablets and has been taking one a day every day. His any blurred vision and eye discharge. Denies all other injuries, chest pain, palpitation, SOB, abdominal pain Ddx considered but are not limited to meniscus tear, effusion of right knee, herpes conjunctivitis, viral conjunctivitis Vital signs: are WNL, pt. is afebrile H&PE are most consistent with herpes conjunctivitis, effusion of right knee, meniscus tear ORDERS knee immobilizer and cane were provided, naproxen, acyclovir ointment, ED INTERVENTIONS: cane and right knee immobilizer DISCHARGE: At this time pt. is stable for d/c to home. Will provide printed patient care instructions, and any necessary prescriptions. Care plan and follow up instructions have been discussed with the patient prior to discharge. take acyclovir oral tablets to treat times a day, no ophthalmic solution available for acyclovir patient mentions that she last got a 2 years ago and I informed her that she needs to go to see her residential interior designer for further drops however ointments and overall acyclovir should help. However if any blurred vision see her residential interior designer immediately also follow-up with orthopedics for possible surgery or steroid injections of the right knee void much pressure on the right knee has a meniscus tear patient is being argumentative about how she needs to walk and she does not want to take the precautions. (Gifty Savgae) Last Vital Signs Date Time Temp Pulse Resp B/P (MAP) Pulse Ox O2 Delivery O2 Flow Rate FiO2 05/08/18 17:56 98.1 73 15 122/56 96 Room Air (Gifty Savage) Disposition: HOME, SELF-CARE Condition: Stable Scripts Acyclovir (Acyclovir) 30 Gm Oint...g. 1 GM TP TID, #30 GM Prov: Gifty Savage 05/08/18 Naproxen* (NAPROXEN*) 500 Mg Tablet 500 MG ORAL TWICE A WEEK, #60 TAB 0 Refills Prov: Gifty Savage 05/08/18 Patient Instructions: Edema, [id number], Herpes Keratitis, Meniscus Tear With Phase I Rehab-Sports[facility] Additional Instructions: follow with the primary care provider for referral to or so possible surgery of the right meniscus needed avoid putting too much pressure on your right knee use a cane of her knee immobilizer at all times and use the eyedrops as direct that follow with residential interior designer if her symptoms worsen Gifty Savage May 08, 2018 18:20 Henri Ramos MD May 09, 2018 03:00
[2018-05-08] MEDS ORDERED: NAPROXEN500 M2 ORAL (18:25)
[2018-05-08] MEDS ORDERED: ACYCLOVIR30 GM TP (18:26)
--- NOTE | 2018-05-08 18:31 | NUR ---
ED Nurse Note: Rt knee imobilizer applied.
[2018-05-08 18:39] VITALS: BP 112/82
--- NOTE | 2018-05-08 18:41 | NUR ---
ER DISCHARGE NOTE: Patient is cleared to be discharged per ERMD, pt is aox4, on room air, with stable vital signs. pt was given dc and prescription instructions, Rt knee immobilizer was applied. pt was able to verbalize understanding, pt id band removed. pt is able to ambulate with steady gait. pt took all belongings.
== END 2018-05-08 18:40 | disposition home or self-care (01) ==
LOC: EMR 18:10
DX: S83.206A Unspecified tear of unspecified meniscus, current injury, right knee, initial encounter (principal); X58.XXXA Exposure to other specified factors, initial encounter; Y92.9 Unspecified place or not applicable; B00.53 Herpesviral conjunctivitis; J45.909 Unspecified asthma, uncomplicated; M25.461 Effusion, right knee; Z88.1 Allergy status to other antibiotic agents; Z88.8 Allergy status to other drugs, medicaments and biological substances
CPT/HCPCS: 29505; 99283

== ENCOUNTER 2018-05-19 17:48 | Emergency (ER) | payer MEDICAID ==
[~2018-05-19] VITALS: Ht 162.6 cm; Wt 68.0 kg
[~2018-05-19 17:48] MED LIST changes: +ACYCLOVIR30 GM TP; +NAPROXEN500 M2 ORAL
[2018-05-19 18:46] VITALS: BP 123/78
--- NOTE | 2018-05-19 18:47 | NUR ---
ED Nurse Note:pt. came with c/o chest congestion and pain, EKG was done
--- NOTE | 2018-05-19 19:56 | Emergency Room Report ---
History of Present Illness General Chief Complaint: Pain Source: Medical Record Present Illness HPI 52-year-old female presents to the emergency department complaining of 7 out of 10 in severity painful cough with pain that radiates down towards the left lateral aspect of the rib cage times 1 day. Patient reports that symptoms are similar in character to that in which she experienced when she was previously diagnosed with pneumonia several months ago. Patient states she has been having ongoing lung issues and has not followed up with pulmonology. She denies fevers or chills she reports some wheezing she also states she has a history of asthma. Denies sore throat, ear pain, high fevers, lethargy, neck pain/stiffness, irritability, photophobia dehydration, N/V/D. Denies Palpitations, LOC, AMS, seizures, paresthesias, or changes in Hearing or vision , no Sudden severe AGUILERA. Denies hx of smoking, asthma or COPD. Allergies: Coded Allergies: DOXYCYCLINE (Verified Allergy, Mild, Rash, 04/18/18) AZITHROMYCIN (Verified Allergy, Unknown, 04/18/18) NITROFURANTOIN (Verified Allergy, Unknown, 04/18/18) CEPHALEXIN (Verified Adverse Reaction, Mild, 04/18/18) pt states mild rash/sob occuring when using keflex Patient History Past Medical History: see triage record Past Surgical History: none Pertinent Family History: none Now: No Reviewed Nursing Documentation: PMH: Agreed; PSxH: Agreed Nursing Documentation-PMH Past Medical History: No History, Except For Hx Cardiac Problems: No Hx Hypertension: No Hx Pacemaker: No Hx Asthma: Yes Hx COPD: No Hx Diabetes: No Hx Cancer: No Hx Gastrointestinal Problems: Yes - Hepatitis C Hx Dialysis: No Hx Neurological Problems: No Hx Cerebrovascular Accident: No Hx Seizures: No Review of Systems All Other Systems: negative except mentioned in HPI Physical Exam Vital Signs Date Time Temp Pulse Resp B/P (MAP) Pulse Ox O2 Delivery O2 Flow Rate FiO2 05/19/18 17:54 98.2 87 18 123/78 97 Room Air Sp02 EP Interpretation: reviewed, normal General Appearance: no apparent distress, alert, GCS 15, non-toxic Head: normocephalic, atraumatic Eyes: bilateral eye normal inspection, bilateral eye PERRL ENT: hearing grossly normal, normal voice Neck: full range of motion Respiratory: lungs clear, normal breath sounds, no wheezing, speaking full sentences, other - TTP reproducible retrosternal and lateral left rib cage ( lower) Cardiovascular #1: regular rate, rhythm Musculoskeletal: back normal, gait/station normal, normal range of motion, non- tender Neurologic: alert, oriented x3, responsive, motor strength/tone normal, sensory intact, speech normal, grossly normal Psychiatric: memory normal, anxious - Pt. is overly concerned with her ED work- up, and has specific tests in mind and treatments, labile mood. Skin: normal color, no rash, warm/dry, well hydrated Lymphatic: no adenopathy Medical Decision Making PA Attestation Dr. Mishra is my supervising Physician whom patient management has been discussed with. Diagnostic Impression: Primary Impression: Atypical pneumonia ER Course 52-year-old female presents to the emergency department complaining of 7 out of 10 in severity painful cough with pain that radiates down towards the left lateral aspect of the rib cage times 1 day. Patient reports that symptoms are similar in character to that in which she experienced when she was previously diagnosed with pneumonia several months ago. Patient states she has been having ongoing lung issues and has not followed up with pulmonology. She denies fevers or chills she reports some wheezing she also states she has a history of asthma. Denies sore throat, ear pain, high fevers, lethargy, neck pain/stiffness, irritability, photophobia dehydration, N/V/D. Denies Palpitations, LOC, AMS, seizures, paresthesias, or changes in Hearing or vision , no Sudden severe AGUILERA. Denies hx of smoking, asthma or COPD. She also reports sputum production Ddx considered but are not limited to URI, pneumonia, PE, strep pharyngitis, meningitis, Vital signs: Pt. is afebrile, the remaining VS are WNL H&PE are most consistent with URI- no meningeal signs, oropharynx is not involved, Pt. w. hx of lung disease ORDERS: -CXR: unremarkable ED INTERVENTIONS: -Levaquin PO DISCHARGE: At this time pt. is stable for d/c to home. Will provide printed patient care instructions, and any necessary prescriptions. Care plan and follow up instructions have been discussed with the patient prior to discharge. EKG Diagnostic Results EP Interpretation: Dr. Mishra Rate: normal - 76 BPM Rhythm: NSR ST Segments: no acute changes Other Impression inverted T wave in lead 3 ASA given to the pt in ED: No PA Scribe Text This Interpretation was scribed by CAROL ANN Jamison. Chest X-Ray Diagnostic Results Chest X-Ray Diagnostic Results : Chest X-Ray Ordered: Yes # of Views/Limited/Complete: 1 View Indication: Chest Pain EP Interpretation: Yes PA Xray: Interpretation reviewed, by supervising MD, and agrees with findings. Interpretation: no consolidation, no effusion, no pneumothorax, no acute cardiopulmonary disease Impression: No acute disease Electronically Signed by: Oumou Jamison PA-C Last Vital Signs Date Time Temp Pulse Resp B/P (MAP) Pulse Ox O2 Delivery O2 Flow Rate FiO2 05/19/18 18:46 98.2 91 18 123/78 97 Room Air Disposition: HOME, SELF-CARE Condition: Stable Scripts Levofloxacin* (LEVAQUIN*) 750 Mg Tablet 750 MG ORAL DAILY for 5 Days, #5 TAB Prov: Oumou Jamison 05/19/18 Prednisone* (PREDNISONE*) 20 Mg Tablet 20 MG ORAL DAILY for 5 Days, #5 TAB 0 Refills Prov: Oumou Jamison 05/19/18 Codeine/Promethazine Hcl* (PROMETHAZINE-CODEINE SYRUP*) 118 Ml Syrup 5 ML ORAL Q6H PRN for For Cough, #120 ML 0 Refills Prov: Oumou Jamison 05/19/18 Patient Instructions: Pleurisy, [id number] Additional Instructions: Take medications as directed. Follow up with a Primary Care Provider in 3-5 days, even if your symptoms have resolved. FOR CHILD WELFARE CASE[employer]. --Please review list of primary care clinics, if you do not already have a primary care provider Return sooner to ED if new symptoms occur, or current symptoms become worse. Do not drink alcohol, drive, or operate heavy machinery while taking Cough Syrup as this may cause drowsiness. - Please note that this Emergency Department Report was dictated using [employer] technology software, occasionally this can lead to erroneous entry secondary to interpretation by the dictation equipment. Oumou Jamison May 19, 2018 19:56
[2018-05-19] MEDS ORDERED: LEVAQUIN750 MG ORAL (20:01)
[2018-05-19] MEDS ORDERED: PROMETHAZINE-C118 M1 ORAL (20:01)
[2018-05-19] MEDS ORDERED: PREDNISONE20 MG ORAL (20:01)
[2018-05-19] MEDS ORDERED: Levofloxacin 750mg tab ORAL ONE (20:45)
[2018-05-19 21:17] VITALS: BP 123/78
--- NOTE | 2018-05-20 11:02 | Diagnostic Imaging Report ---
Indication: Chest pain Technique: One view of the chest Comparison: 01/21/2018 Findings: Less optimal inspiration currently. Lungs and pleural spaces are clear. The heart size is normal. Impression: No acute process
--- NOTE | 2018-05-20 13:14 | Cardiology Report ---
APPROVED REPORT EKG Measurement Heart [id number] SD [id number] Normal sinus rhythm Normal ECG
== END 2018-05-19 21:17 | disposition home or self-care (01) ==
LOC: EMR 18:45
DX: J18.9 Pneumonia, unspecified organism (principal); J45.909 Unspecified asthma, uncomplicated; Z88.1 Allergy status to other antibiotic agents; Z88.8 Allergy status to other drugs, medicaments and biological substances
CPT/HCPCS: 71045; 93005; 99283

== ENCOUNTER 2018-07-07 17:38 | Emergency (ER) | payer MEDICAID ==
[~2018-07-07] VITALS: Ht 162.6 cm; Wt 68.5 kg
[~2018-07-07 17:38] MED LIST changes: +PROMETHAZINE-C118 M1 ORAL
[2018-07-07 18:41] VITALS: BP 121/78
[2018-07-07 19:02] VITALS: BP 121/78
--- NOTE | 2018-07-07 21:35 | Emergency Room Report ---
History of Present Illness General Chief Complaint: Palpitations Source: Patient Present Illness HPI 52-year-old female presents ED for evaluation. Complaining of palpitations for the last 4 days. Denies chest pain. Denies dizziness. Denies fevers or chills. Denies drug use. Notes history of anxiety. States that she normally takes Valium. Denies any cardiac risk factors. No other aggravating relieving factors. Denies any other associated symptoms Allergies: Coded Allergies: DOXYCYCLINE (Verified Allergy, Mild, Rash, 04/18/18) AZITHROMYCIN (Verified Allergy, Unknown, 04/18/18) NITROFURANTOIN (Verified Allergy, Unknown, 04/18/18) CEPHALEXIN (Verified Adverse Reaction, Mild, 04/18/18) pt states mild rash/sob occuring when using keflex Patient History Past Medical History: asthma, psych hx Past Surgical History: none Pertinent Family History: none Social History: Denies: smoking, alcohol use, drug use Now: No Immunizations: UTD Reviewed Nursing Documentation: PMH: Agreed; PSxH: Agreed Nursing Documentation-PMH Past Medical History: No History, Except For Hx Cardiac Problems: No Hx Hypertension: No Hx Pacemaker: No Hx Asthma: Yes Hx COPD: No Hx Diabetes: No Hx Cancer: No Hx Gastrointestinal Problems: Yes - Hepatitis C Hx Dialysis: No Hx Neurological Problems: No Hx Cerebrovascular Accident: No Hx Seizures: No Review of Systems All Other Systems: negative except mentioned in HPI Physical Exam Vital Signs Date Time Temp Pulse Resp B/P (MAP) Pulse Ox O2 Delivery O2 Flow Rate FiO2 07/07/18 17:45 98.1 76 18 124/82 96 Room Air Sp02 EP Interpretation: reviewed, normal General Appearance: no apparent distress, alert, GCS 15, non-toxic Head: normocephalic, atraumatic Eyes: bilateral eye normal inspection, bilateral eye PERRL ENT: hearing grossly normal, normal pharynx, no angioedema, normal voice Neck: full range of motion, supple/symm/no masses Respiratory: chest non-tender, lungs clear, normal breath sounds, speaking full sentences Cardiovascular #1: regular rate, rhythm, no edema Cardiovascular #2: 2+ carotid (R), 2+ carotid (L), 2+ radial (R), 2+ radial (L) , 2+ dorsalis pedis (R), 2+ dorsalis pedis (L) Gastrointestinal: normal bowel sounds, non tender, soft, non-distended, no guarding, no rebound Rectal: deferred Genitourinary: normal inspection, no CVA tenderness Musculoskeletal: back normal, gait/station normal, normal range of motion, non- tender Neurologic: alert, oriented x3, responsive, motor strength/tone normal, sensory intact, speech normal Psychiatric: judgement/insight normal, memory normal, mood/affect normal, no suicidal/homicidal ideation, anxious Reflexes: 3+ bicep (R), 3+ bicep (L), 3+ tricep (R), 3+ tricep (L), 3+ knee (R) , 3+ knee (L) Skin: normal color, no rash, warm/dry, well hydrated Lymphatic: no adenopathy Medical Decision Making Diagnostic Impression: Primary Impression: Palpitations ER Course Hospital Course 52-year-old F presents ED complaining of palpitations Differential diagnoses include: afib, Vtach, SVT, anxiety, dehydration Clinical course Patient placed on stretcher. After initial history, patient refused any further workup or being looked up to the monitor, she received 10 mg of Valium Patient states she takes Valium every day and it is prescribed to her. Patient shows me a bottle I splinted the patient that I will provide her with a dose of Valium but not 10 mg. After physical I ordered EKG EKGnormal sinus rhythm no acute ischemic changes interpreted by me Patient has stable vitals. Patient has no cardiac risk factors. Patient does have history of anxiety Discussed findings with patient. Patient can be discharged to home at this time. Patient may benefit from outpatient Holter monitoring Patient refused to get Holter monitoring. I reviewed EMR on prior visits patient has been difficult with nursing staff on multiple occasions. I. I feel this is a highly complex case requiring extensive working including EKG/Rhythm strip, Xray/CT/US, Blood/urine lab work, repeat exams while in ED, and administration of strong opiates/narcotics for pain control, admission to hospital or close patient follow up. Diagnosis - palpitations Stable and discharged to home. Instructed to followup with PMD. Return to ED if symptoms recur or worsen EKG Diagnostic Results Rate: normal Rhythm: NSR ST Segments: no acute changes ASA given to the pt in ED: No Rhythm Strip Diag. Results EP Interpretation: yes Rhythm: NSR, no PVC's, no ectopy Last Vital Signs Date Time Temp Pulse Resp B/P (MAP) Pulse Ox O2 Delivery O2 Flow Rate FiO2 07/07/18 19:02 98.1 87 18 121/78 99 Room Air Status: improved Disposition: HOME, SELF-CARE Condition: Stable Referrals: [facility] (PCP) Patient Instructions: Palpitations, [id number] Baltazar Walton MD Jul 07, 2018 21:35
--- NOTE | 2018-07-08 21:57 | Cardiology Report ---
APPROVED REPORT EKG Measurement Heart [id number] Normal sinus rhythm Normal ECG
== END 2018-07-07 19:02 | disposition home or self-care (01) ==
LOC: EMR 18:02
DX: R00.2 Palpitations (principal); J45.909 Unspecified asthma, uncomplicated; B19.20 Unspecified viral hepatitis C without hepatic coma
CPT/HCPCS: 93005; 99283

== ENCOUNTER 2018-10-04 16:36 | Emergency (ER) | payer MEDICAID ==
[~2018-10-04] VITALS: Ht 162.6 cm; Wt 66.7 kg
[2018-10-04 16:45] VITALS: BP 123/80
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
--- NOTE | 2018-10-04 17:04 | NUR ---
ED Nurse Note: Pt ambulated to x-ray with a tech in stable condition.
--- NOTE | 2018-10-04 17:13 | NUR ---
ED Nurse Note: pt came back from x-ray in stable condition.
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
--- NOTE | 2018-10-04 17:36 | NUR ---
ED Nurse Note: call radiology for CD of x-ray.
[2018-10-04] MEDS ORDERED: NAPROXEN250 MG ORAL (17:38)
[2018-10-04] MEDS ORDERED: BACLOFEN5 MG PO (17:38)
[2018-10-04 17:41] VITALS: BP 123/80
--- NOTE | 2018-10-04 17:42 | NUR ---
ER DISCHARGE NOTE: Patient is cleared to be discharged per ERPA with x-ray CD, pt is aox4, on room air, with stable vital signs. pt was given dc and prescription instructions, pt was able to verbalize understanding, pt id band removed. pt is able to ambulate with steady gait. pt took all belongings.
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
--- NOTE | 2018-10-04 18:12 | Diagnostic Imaging Report ---
Indications: hip pain Findings: Two views of the right hip were obtained. No acute fracture is demonstrated. Alignment of the hip is within normal limits. Soft tissues are unremarkable. Impression: Negative for acute injury.
--- NOTE | 2018-10-04 18:13 | Diagnostic Imaging Report ---
Indication: Back pain Comparison: None Findings: 3 views of the lumbar spine were obtained. No fracture seen. Alignment is normal. There is variable degrees of narrowing of the disc spaces a moderate at L3-4. Endplate spurs also noted at this level. There is sclerosis of the lower lumbar facets at L5-S1. Bones are osteopenic. IMPRESSION: No acute injury identified.
== END 2018-10-04 17:40 | disposition home or self-care (01) ==
LOC: EMR 17:08
DX: S70.01XA Contusion of right hip, initial encounter (principal); S30.0XXA Contusion of lower back and pelvis, initial encounter; V49.9XXA Car occupant (driver) (passenger) injured in unspecified traffic accident, initial encounter; Y92.410 Unspecified street and highway as the place of occurrence of the external cause; Z86.19 Personal history of other infectious and parasitic diseases
CPT/HCPCS: 72020; 99284

== ENCOUNTER 2018-11-15 16:58 | Emergency (ER) | payer MEDICAID ==
[~2018-11-15] VITALS: Ht 165.1 cm; Wt 68.0 kg
[~2018-11-15 16:58] MED LIST changes: +BACLOFEN5 MG PO; +NAPROXEN250 MG ORAL
[2018-11-15 17:27] VITALS: BP 134/91
[2018-11-15 17:40] LABS: APPEARANCE,URINE SLIGHTLY CLOUDY; BILIRUBIN, URINE NEGATIVE (NEGATIVE); GLUCOSE, URINE (UA) NEGATIVE (NEGATIVE); KETONES,URINE 1+ (NEGATIVE); LEUKOCYTE ESTERASE ,URINE 1+ (NEGATIVE); NITRITE,URINE NEGATIVE (NEGATIVE); PH,URINE 6 (4.5-8.0); PROTEIN,URINE 1+ (NEGATIVE); UROBILINOGEN,URINE 1 MG/DL (0.0-1.0)
[2018-11-15 17:41] LABS: COLOR,URINE YELLOW
--- NOTE | 2018-11-15 19:43 | Emergency Room Report ---
History of Present Illness General Chief Complaint: Female Urogenital Problems Source: Patient Present Illness HPI 52-year-old female presents to the emergency department complaining of vaginal yeast infection after taking antibiotics for upper respiratory infection. Patient reports thick white discharge with vaginal discomfort/itching. Patient denies malodor she denies suspicion of STI. Patient reports symptoms are consistent with previously experienced symptoms when she has a yeast infection. Patient states that she is highly susceptible to yeast infections after taking antibiotics. Patient also wants to be checked for UTI because she states she has been intermittently having a 4 out of 10 in severity progressive onset dull generalized headache she attributes might be due to urinary tract infection. Patient denies abdominal pain or tenderness, low back pain, hematuria or urgency. Patient does report increase in urinary frequency. She denies nausea, vomiting, photophobia, neck pain or stiffness, fevers or chills. No other aggravating or relieving factors. Allergies: Coded Allergies: DOXYCYCLINE (Verified Allergy, Mild, Rash, 04/18/18) AZITHROMYCIN (Verified Allergy, Unknown, 04/18/18) NITROFURANTOIN (Verified Allergy, Unknown, 04/18/18) CEPHALEXIN (Verified Adverse Reaction, Mild, 04/18/18) pt states mild rash/sob occuring when using keflex Patient History Past Medical History: see triage record Past Surgical History: none Pertinent Family History: none Now: No Reviewed Nursing Documentation: PMH: Agreed; PSxH: Agreed Nursing Documentation-PMH Past Medical History: No History, Except For Hx Cardiac Problems: No Hx Hypertension: No Hx Pacemaker: No Hx Asthma: Yes Hx COPD: No Hx Diabetes: No Hx Cancer: No Hx Gastrointestinal Problems: Yes - Hepatitis C Hx Dialysis: No Hx Neurological Problems: No Hx Cerebrovascular Accident: No Hx Seizures: No Review of Systems All Other Systems: negative except mentioned in HPI Physical Exam Vital Signs Date Time Temp Pulse Resp B/P (MAP) Pulse Ox O2 Delivery O2 Flow Rate FiO2 11/15/18 17:05 98.1 105 17 134/91 (105) 99 Room Air Sp02 EP Interpretation: reviewed, normal General Appearance: no apparent distress, alert, GCS 15, non-toxic Head: normocephalic, atraumatic Eyes: bilateral eye normal inspection, bilateral eye PERRL, bilateral eye other - no photophobia ENT: hearing grossly normal, normal voice Neck: full range of motion Respiratory: lungs clear, normal breath sounds, speaking full sentences Cardiovascular #1: regular rate, rhythm Gastrointestinal: normal bowel sounds, non tender, soft Rectal: deferred Genitourinary: normal inspection, no CVA tenderness, deferred - pelvic Musculoskeletal: back normal, gait/station normal, normal range of motion, non- tender Neurologic: alert, oriented x3, responsive, motor strength/tone normal, sensory intact, normal gait, speech normal, no pronator, other - no facial droop. clear concise speech. No motor weakness, grossly normal Psychiatric: judgement/insight normal Skin: no rash Medical Decision Making PA Attestation Dr. Goldman is my supervising Physician whom patient management has been discussed with. Diagnostic Impression: Primary Impression: Yeast vaginitis Additional Impression: Drug-seeking behavior ER Course 52-year-old female presents to the emergency department complaining of vaginal yeast infection after taking antibiotics for upper respiratory infection. Patient reports thick white discharge with vaginal discomfort/itching. Patient denies malodor she denies suspicion of STI. Patient reports symptoms are consistent with previously experienced symptoms when she has a yeast infection. Patient states that she is highly susceptible to yeast infections after taking antibiotics. Patient also wants to be checked for UTI because she states she has been intermittently having a 4 out of 10 in severity progressive onset dull generalized headache she attributes might be due to urinary tract infection. Patient denies abdominal pain or tenderness, low back pain, hematuria or urgency. Patient does report increase in urinary frequency. She denies nausea, vomiting, photophobia, neck pain or stiffness, fevers or chills. No other aggravating or relieving factors. Denies weakness in extremities, she denies slurred speech blurry vision her facial droop. Reports progressive onset denies sudden onset, no visual or auditory symptoms and accompanying her headache. Ddx considered but are not limited to UTi , Pyelo, STI, Stone, Cystitis, vaginal laceration, vaginitis, SAH, migraine, just to name a few. Vital signs: are WNL, pt. is afebrile H& PE are most consistent with: Vaginitis will do UA to assess for UTI. no focal neurological deficits, patient not currently having headache. Patient does demonstrate moderate drug-seeking behavior. Patient is requesting prescription for Valium stating that this typically helps relieve her headaches. Patient after being denied this prescription then proceeded to request for tramadol. I have had this patient on previous ED visits and recall her making similar requests. ORDERS: - UA labs are attached-- not highly consistent with infection will send for reflex.- most c/w contamination ED INTERVENTIONS: -none required at this time. -I do not identify an emergent condition at this time. With current presentation , pt. is stable for close outpatient follow up and conservative treatment. D/ w pt. to return promptly to ED with worsening or new symptoms.- Pt. verbalizes' understanding and agreement with proposed treatment plan.proposed treatment plan. DISCHARGE: At this time pt. is stable for d/c to home. Will provide printed patient care instructions, and any necessary prescriptions. Care plan and follow up instructions have been discussed with the patient prior to discharge. discussed with the patient prior to discharge. Labs Test 11/15/18 17:05 Urine Color Yellow Urine Appearance Slightly cloudy Urine pH 6 (4.5-8.0) Urine Specific [place] 1.015 (1.005-1.035) Urine Protein 1+ (NEGATIVE) Urine Glucose (UA) Negative (NEGATIVE) Urine Ketones 1+ (NEGATIVE) Urine Blood 1+ (NEGATIVE) Urine Nitrite Negative (NEGATIVE) Urine Bilirubin Negative (NEGATIVE) Urine Urobilinogen 1 MG/DL (0.0-1.0) Urine Leukocyte Esterase 1+ (NEGATIVE) Urine RBC 2-4 /HPF (0 - 2) Urine WBC 0-2 /HPF (0 - 2) Urine Squamous Epithelial Cells Few /LPF (NONE/OCC) Urine Bacteria Few /HPF (NONE) Urine Mucus Many /LPF (NONE/OCC) Last Vital Signs Date Time Temp Pulse Resp B/P (MAP) Pulse Ox O2 Delivery O2 Flow Rate FiO2 11/15/18 17:27 98.1 68 17 134/91 99 Room Air Disposition: HOME, SELF-CARE Condition: Stable Scripts Fluconazole (FLUCONAZOLE) 100 Mg Tablet 100 MG ORAL DAILY, #6 TAB 0 Refills Prov: Oumou Jamison 11/15/18 Patient Instructions: Vaginal Yeast Infection, Adult Additional Instructions: Take medications as directed. Follow up with a Primary Care Provider in 3-5 days, even if your symptoms have resolved. --Please review list of primary care clinics, if you do not already have a primary care provider Return sooner to ED if new symptoms occur, or current symptoms become worse. - Please note that this Emergency Department Report was dictated using [employer] machine operator technology software, occasionally this can lead to erroneous entry secondary to interpretation by the dictation equipment. Oumou Jamison Nov 15, 2018 19:43
[2018-11-15] MEDS ORDERED: FLUCONAZOLE100 MG ORAL (19:44)
[2018-11-15] MEDS ORDERED: Ketorolac 30mg Inj IM ONE (19:45)
[2018-11-15 19:54] VITALS: BP 128/88
[2018-11-15 20:04] VITALS: BP 128/88
== END 2018-11-15 20:49 | disposition home or self-care (01) ==
LOC: EMR 19:38
DX: B37.3 Candidiasis of vulva and vagina (principal); Z76.5 Malingerer [conscious simulation]; J45.909 Unspecified asthma, uncomplicated; B19.20 Unspecified viral hepatitis C without hepatic coma; Z88.1 Allergy status to other antibiotic agents; Z88.8 Allergy status to other drugs, medicaments and biological substances
CPT/HCPCS: 81001; 96372; 99283; J1885

== ENCOUNTER 2019-01-09 16:16 | Emergency (ER) | payer MEDICAID ==
[~2019-01-09] VITALS: Ht 165.1 cm; Wt 68.0 kg
[2019-01-09 16:45] VITALS: BP 139/94
--- NOTE | 2019-01-09 16:45 | NUR ---
ED Nurse Note:pt. came with rash on her body of unknown cause
--- NOTE | 2019-01-09 16:52 | Emergency Room Report ---
History of Present Illness General Chief Complaint: Skin Rash/Abscess Source: Medical Record Present Illness HPI 53-year-old female with a past medical history here complaining of pruritic and somewhat painful rash all over upper and lower extremities. Does not recall being bit by an insect. Patient appears to have an unknown underlying psychiatric disorder. Reports that she believes that 1 of her bites which she assumes to be a bite is infected and was Augmentin to be specific as other medications do not make her feel well. Also request for 3 tablets of Diflucan as she often gets yeast infection with antibiotics. Denies fever and chills, chest pain, shortness of breath, palpitation, abdominal pain, nausea vomiting, fever and chills. Has not taken any medication for symptom relief. Multiple noninfected insect bites which appeared to be possibly mosquito bites noted on bilateral upper and lower extremities. Over right elbow the insect bite is slightly warm to touch with no pus drainage. Denies anaphylaxis Allergies: Coded Allergies: DOXYCYCLINE (Verified Allergy, Mild, Rash, 04/18/18) AZITHROMYCIN (Verified Allergy, Unknown, 04/18/18) NITROFURANTOIN (Verified Allergy, Unknown, 04/18/18) CEPHALEXIN (Verified Adverse Reaction, Mild, 04/18/18) pt states mild rash/sob occuring when using keflex Patient History Past Medical History: see triage record Past Surgical History: unable to obtain Pertinent Family History: none Now: No Immunizations: UTD Reviewed Nursing Documentation: PMH: Agreed; PSxH: Agreed Nursing Documentation-PM Past Medical History: No History, Except For Hx Cardiac Problems: No Hx Hypertension: No Hx Pacemaker: No Hx Asthma: Yes Hx COPD: No Hx Diabetes: No Hx Cancer: No Hx Gastrointestinal Problems: Yes - Hepatitis C Hx Dialysis: No Hx Neurological Problems: No Hx Cerebrovascular Accident: No Hx Seizures: No Review of Systems All Other Systems: negative except mentioned in HPI Physical Exam Vital Signs Date Time Temp Pulse Resp B/P (MAP) Pulse Ox O2 Delivery O2 Flow Rate FiO2 01/09/19 16:25 98.6 89 16 139/94 (109) 96 Room Air Sp02 EP Interpretation: reviewed, normal General Appearance: no apparent distress, alert, GCS 15, non-toxic Head: normocephalic, atraumatic Eyes: bilateral eye normal inspection, bilateral eye PERRL ENT: hearing grossly normal, normal pharynx, no angioedema, normal voice Neck: full range of motion, supple/symm/no masses Respiratory: chest non-tender, lungs clear, normal breath sounds, no wheezing, speaking full sentences Cardiovascular #1: regular rate, rhythm, no edema, no murmur, normal capillary refill Gastrointestinal: normal bowel sounds, non tender, soft, non-distended, no guarding, no rebound Genitourinary: no CVA tenderness Musculoskeletal: back normal, gait/station normal, normal range of motion, non- tender Neurologic: alert, oriented x3, responsive, motor strength/tone normal, sensory intact, speech normal Psychiatric: judgement/insight normal, memory normal, mood/affect normal, no suicidal/homicidal ideation Skin: rash - non infected insect bites upper and lower extermities Lymphatic: normal inspection, no adenopathy Medical Decision Making PA Attestation All my diagnosis and treatment plans were reviewed ad discussed with my supervising physician Dr. Almonte Diagnostic Impression: Primary Impression: Insect bite ER Course 53-year-old female with a past medical history here complaining of pruritic and somewhat painful rash all over upper and lower extremities. Does not recall being bit by an insect. Patient appears to have an unknown underlying psychiatric disorder. Reports that she believes that 1 of her bites which she assumes to be a bite is infected and was Augmentin to be specific as other medications do not make her feel well. Also request for 3 tablets of Diflucan as she often gets yeast infection with antibiotics. Denies fever and chills, chest pain, shortness of breath, palpitation, abdominal pain, nausea vomiting, fever and chills. Has not taken any medication for symptom relief. Multiple noninfected insect bites which appeared to be possibly mosquito bites noted on bilateral upper and lower extremities. Over right elbow the insect bite is slightly warm to touch with no pus drainage. Denies anaphylaxis Ddx considered but are not limited to: Eczema, scabies, lice, insect bite Vital signs: are WNL, pt. is afebrile H&PE are most consistent with: Insect bite ORDERS: Augmentin, Diflucan for vaginitis secondary to antibiotic use, hydrocortisone however cream ED INTERVENTIONS: None required at this time. DISCHARGE: At this time pt. is stable for d/c to home. Will provide printed patient care instructions, and any necessary prescriptions. Care plan and follow up instructions have been discussed with the patient prior to discharge. Follow-up with your primary care provider, if worsening symptoms return to the emergency room. Last Vital Signs Date Time Temp Pulse Resp B/P (MAP) Pulse Ox O2 Delivery O2 Flow Rate FiO2 01/09/19 16:45 98.6 78 16 139/94 96 Room Air Disposition: HOME, SELF-CARE Condition: Stable Scripts Hydrocortisone/Aloe Vera 1%* (HYDROCORTISONE-ALOE 1% CREAM*) Y Cr 1 APPLIC TOPIC Q6H PRN for Itching, #30 GM Prov: Gifty Savage 01/09/19 Fluconazole (FLUCONAZOLE) 100 Mg Tablet 100 MG ORAL DAILY for 3 Days, #3 TAB 0 Refills Prov: Gifty Savage 01/09/19 Amoxicillin/Potassium Clav 875-125* (AUGMENTIN 875-125 TABLET*) 1 Each Tablet 1 TAB ORAL TWICE A DAY for 7 Days, #14 TAB Prov: Gifty Savage 01/09/19 Patient Instructions: Insect Bite, [id number] Gifty Savage Jan 09, 2019 16:52
[2019-01-09] MEDS ORDERED: FLUCONAZOLE100 MG ORAL (16:54)
[2019-01-09] MEDS ORDERED: AUGMENTIN 875-1 EAC1 ORAL (16:54)
[2019-01-09] MEDS ORDERED: HYDROCORTISONE-30 GM TOPIC (16:54)
--- NOTE | 2019-01-09 17:00 | NUR ---
ER DISCHARGE NOTE: Patient is cleared to be discharged per ERMD, pt is aox4, on room air, with stable vital signs. pt was given dc and prescription instructions, pt was able to verbalize understanding, pt is able to ambulate with steady gait. pt took all belongings.
[2019-01-09 17:07] VITALS: BP 139/94
== END 2019-01-09 17:00 | disposition home or self-care (01) ==
LOC: EMR 16:50
DX: S40.862A Insect bite (nonvenomous) of left upper arm, initial encounter (principal); S40.861A Insect bite (nonvenomous) of right upper arm, initial encounter; S80.862A Insect bite (nonvenomous), left lower leg, initial encounter; S80.861A Insect bite (nonvenomous), right lower leg, initial encounter; J45.909 Unspecified asthma, uncomplicated; B19.20 Unspecified viral hepatitis C without hepatic coma; Z88.1 Allergy status to other antibiotic agents; Z88.8 Allergy status to other drugs, medicaments and biological substances; Z86.59 Personal history of other mental and behavioral disorders; W57.XXXA Bitten or stung by nonvenomous insect and other nonvenomous arthropods, initial encounter; Y92.9 Unspecified place or not applicable
CPT/HCPCS: 99282

== ENCOUNTER 2019-10-25 16:28 | Emergency (ER) | payer MEDICAID, OTHER ==
[~2019-10-25] VITALS: Ht 165.1 cm; Wt 68.0 kg
[~2019-10-25 16:28] MED LIST changes: +HYDROCORTISONE-30 GM TOPIC
[2019-10-25] MEDS ORDERED: Ketorolac 30mg Inj IV ONE (17:00)
[2019-10-25] MEDS ORDERED: Omnipaque-300 100ml vial INJ PRN (17:00)
[2019-10-25] MEDS ORDERED: Dicyclomine 10mg Cap ORAL ONE (17:00)
--- NOTE | 2019-10-25 17:22 | NUR ---
ED Nurse Note:pt. came with c/o abdominal pain, A/Ox4 ambulatory, blood sent to labs, pt. refused to have iv line incerted, also refused IV fluids and meds
[2019-10-25 17:29] VITALS: BP 133/89
[2019-10-25 17:41] LABS: BASOPHILS % (AUTO) 1.7 % (0.0-2.0); EOSINOPHILS % (AUTO) 3.9 % (0.0-3.0); HEMATOCRIT 41.2 % (37.0-47.0); HEMOGLOBIN 13.7 G/DL (12.0-16.0); LYMPHOCYTES % (AUTO) 29.5 % (20.0-45.0); MEAN CORPUSCULAR VOLUME 84 FL (80-99); MONOCYTES % (AUTO) 6.4 % (1.0-10.0); NEUTROPHILS % (AUTO) 58.4 % (45.0-75.0); PLATELET COUNT 226 K/UL (150-450); RED BLOOD COUNT 4.92 M/UL (4.20-5.40); RED CELL DISTRIBUTION WIDTH 13.6 % (11.6-14.8); WHITE BLOOD COUNT 9.2 K/UL (4.8-10.8)
[2019-10-25 17:46] LABS: ANION GAP 7 mmol/L (5-15); BLOOD UREA NITROGEN 11 mg/dL (7-18); CALCIUM 9.4 MG/DL (8.5-10.1); CARBON DIOXIDE 29 MMOL/L (21-32); CHLORIDE 103 MMOL/L (98-107); CREATININE 0.8 MG/DL (0.55-1.30); POTASSIUM 3.7 MMOL/L (3.5-5.1); SODIUM 139 MMOL/L (136-145)
[2019-10-25 17:50] LABS: ALANINE AMINOTRANSFERASE 37 U/L (12-78); ALBUMIN 4.1 G/DL (3.4-5.0); ALBUMIN/GLOBULIN RATIO 1.1 (1.0-2.7); ALKALINE PHOSPHATASE 85 U/L (46-116); ASPARTATE AMINO TRANSFERASE 27 U/L (15-37); BILIRUBIN,TOTAL 0.4 MG/DL (0.2-1.0)
[2019-10-25 17:51] LABS: INR 0.9 (0.9-1.1)
[2019-10-25 17:52] LABS: APPEARANCE,URINE CLEAR; BILIRUBIN, URINE NEGATIVE (NEGATIVE); COLOR,URINE PALE YELLOW; GLUCOSE, URINE (UA) NEGATIVE (NEGATIVE); KETONES,URINE NEGATIVE (NEGATIVE); LEUKOCYTE ESTERASE ,URINE NEGATIVE (NEGATIVE); NITRITE,URINE NEGATIVE (NEGATIVE); PH,URINE 6 (4.5-8.0); PROTEIN,URINE NEGATIVE (NEGATIVE); UROBILINOGEN,URINE NORMAL MG/DL (0.0-1.0)
--- NOTE | 2019-10-25 18:04 | NUR ---
ED Nurse Note:abd CT scan done and urine sent
--- NOTE | 2019-10-25 18:06 | Diagnostic Imaging Report ---
EXAM: CT Abdomen and Pelvis Without Intravenous Contrast CLINICAL HISTORY: PAIN TECHNIQUE: Axial computed tomography images of the abdomen and pelvis without intravenous contrast. CTDI is 5.1 mGy and DLP is 255.90 mGy-cm. One or more of the following dose reduction techniques were used: automated exposure control, adjustment of the mA and/or kV according to patient size, use of iterative reconstruction technique. COMPARISON: 11/16/2006. FINDINGS: Lung bases: Stable right lower lobe small nodular density. ABDOMEN: Liver: Unremarkable. Gallbladder and bile ducts: Unremarkable. No calcified stones. Pancreas: Unremarkable. Spleen: Unremarkable. Adrenals: Unremarkable. Kidneys and ureters: Unremarkable. No hydronephrosis. Stomach and bowel: Mild diffuse colonic thickening which may be underdistention versus colitis. No bowel obstruction or diverticulitis. PELVIS: Appendix: No findings to suggest acute appendicitis. Bladder: Unremarkable. Reproductive: Unremarkable as visualized. ABDOMEN and PELVIS: Intraperitoneal space: No free air. Bones/joints: No acute fracture. Soft tissues: Small umbilical fat hernia. Vasculature: Unremarkable. Lymph nodes: Unremarkable. IMPRESSION: Mild diffuse colonic thickening which may be underdistention versus colitis. No bowel obstruction or diverticulitis.
--- NOTE | 2019-10-25 18:10 | Emergency Room Report ---
History of Present Illness General Chief Complaint: Abdominal Pain Source: Patient Present Illness HPI 53-year-old female with no known significant past medical history here complaining of several weeks of intermittent diarrhea without any blood in stool. Reports that she has an upcoming appointment with primary doctor for stool culture and ova and parasite. Denies any abdominal pain, nausea vomiting at this time. Reports that she has been having diarrhea with every food that she consumes. Denies being on any antibiotic recently. Also complains of a semi-painful insect bite left ankle x2 days. Denies any fever and chills, generalized weakness, tingling or numbness. Has not taken medication for symptom relief. Denies chest pain, shortness of breath, cough and congestion, loss of taste and smell. 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 COVID-19 Screening: Negative COVID-19 COVID-19 Testing Source: nasopharynx Patient History Past Medical History: see triage record Past Surgical History: none Pertinent Family History: none Now: No Immunizations: UTD Reviewed Nursing Documentation: PMH: Agreed; PSxH: Agreed Nursing Documentation-PMH Past Medical History: No History, Except For Hx Cardiac Problems: No Hx Hypertension: No Hx Pacemaker: No Hx Asthma: Yes Hx COPD: No Hx Diabetes: No Hx Cancer: No Hx Gastrointestinal Problems: Yes - Hepatitis C Hx Dialysis: No Hx Neurological Problems: No Hx Cerebrovascular Accident: No Hx Seizures: No Review of Systems All Other Systems: negative except mentioned in HPI Physical Exam Vital Signs Date Time Temp Pulse Resp B/P (MAP) Pulse Ox O2 Delivery O2 Flow Rate FiO2 10/25/19 16:42 98.8 80 18 133/89 (104) 94 Room Air Sp02 EP Interpretation: reviewed, normal General Appearance: no apparent distress, alert, GCS 15, non-toxic Head: normocephalic, atraumatic Eyes: bilateral eye normal inspection, bilateral eye PERRL ENT: hearing grossly normal, normal pharynx, no angioedema, normal voice Neck: full range of motion, supple/symm/no masses Respiratory: chest non-tender, lungs clear, normal breath sounds, no rhonchi, no respiratory distress, no retraction, speaking full sentences Cardiovascular #1: normal inspection, regular rate, rhythm, no edema, no JVD, no murmur Gastrointestinal: normal bowel sounds, non tender, soft, no mass, no peritonitis, no bruit, non-distended, no guarding, no rebound Rectal: deferred Genitourinary: no CVA tenderness Musculoskeletal: back normal Neurologic: alert, motor strength/tone normal, oriented x3, sensory intact, responsive, speech normal Psychiatric: judgement/insight normal, memory normal, mood/affect normal, no suicidal/homicidal ideation Skin: no rash Lymphatic: no adenopathy Medical Decision Making PA Attestation All diagnoses and treatment plans were reviewed and discussed with my supervising physician Dr. Goldman Diagnostic Impression: Primary Impression: Chronic diarrhea Additional Impressions: Colitis Infected insect bite ER Course 53-year-old female with no known significant past medical history here complaining of several weeks of intermittent diarrhea without any blood in stool. Reports that she has an upcoming appointment with primary doctor for stool culture and ova and parasite. Denies any abdominal pain, nausea vomiting at this time. Reports that she has been having diarrhea with every food that she consumes. Denies being on any antibiotic recently. Also complains of a semi-painful insect bite left ankle x2 days. Denies any fever and chills, generalized weakness, tingling or numbness. Has not taken medication for symptom relief. Denies chest pain, shortness of breath, cough and congestion, loss of taste and smell. Denies drug use, tobacco smoke, alcohol intake Ddx considered but are not limited to: appendicitis, cholecystis, gastritis, gastroenteritis, UTI, pyelonephritis, SBO, diverticulitis, influenza with GI manifestation, [place], pancreatitis Vital signs: are WNL, pt. is afebrile H&PE are most consistent with: Diarrhea, colitis, infected insect bite ORDERS: abdominal CT no contrast this patient reported that she is allergic to contrast, abdominal pain set, EKG, dicyclomine, Augmentin as patient reported that that the only antibiotic that she can take without any problems ED INTERVENTIONS: Patient refused NS bolus, Zofran and Pepcid as did not want any IV insertion reports that it usually horn her. Dicyclomine, first dose of Augmentin DISCHARGE: At this time pt. is stable for d/c to home. Will provide printed patient care instructions, and any necessary prescriptions. Care plan and follow up instructions have been discussed with the patient prior to discharge. Patient take medication as directed, follow primary care provider, ova and parasite and stool culture recommended. If worsening symptoms return to the emergency room. EKG Diagnostic Results Rate: normal Rhythm: NSR ST Segments: no acute changes Other Impression No acute ST changes CT/MRI/US Diagnostic Results CT/MRI/US Diagnostic Results : Imaging Test Ordered: CT abdomen pelvis without contrast Impression FINDINGS: Lung bases: Stable right lower lobe small nodular density. ABDOMEN: Liver: Unremarkable. Gallbladder and bile ducts: Unremarkable. No calcified stones. Pancreas: Unremarkable. Spleen: Unremarkable. Adrenals: Unremarkable. Kidneys and ureters: Unremarkable. No hydronephrosis. Stomach and bowel: Mild diffuse colonic thickening which may be underdistention versus colitis. No bowel obstruction or diverticulitis. PELVIS: Appendix: No findings to suggest acute appendicitis. Bladder: Unremarkable. Reproductive: Unremarkable as visualized. ABDOMEN and PELVIS: Intraperitoneal space: No free air. Bones/joints: No acute fracture. Soft tissues: Small umbilical fat hernia. Vasculature: Unremarkable. Lymph nodes: Unremarkable. IMPRESSION: Mild diffuse colonic thickening which may be underdistention versus colitis. No bowel obstruction or diverticulitis. Last Vital Signs Date Time Temp Pulse Resp B/P (MAP) Pulse Ox O2 Delivery O2 Flow Rate FiO2 10/25/19 18:03 98.8 10/25/19 17:29 80 18 133/89 94 Room Air Disposition: HOME, SELF-CARE Condition: Stable Scripts Dicyclomine Hcl* (DICYCLOMINE HCL*) 10 Mg Capsule 10 MG ORAL QID, #20 CAP Prov: Gifty Savage 10/25/19 Amoxicillin/Potassium Clav 875-125* (AUGMENTIN 875-125 TABLET*) 1 Each Tablet 1 TAB ORAL TWICE A DAY for 7 Days, #14 TAB Prov: Gifty Savage 10/25/19 Referrals: [facility]ERR[facility] (PCP) Patient Instructions: Abdominal Pain, Adult, Colitis Additional Instructions: Take medication as directed, follow-up with your primary doctor for stool culture, ova and parasite, worsening symptoms return to emergency room Gifty Savage Oct 25, 2019 18:10
[2019-10-25] MEDS ORDERED: DICYCLOMINE HCL10 MG ORAL (18:12)
[2019-10-25] MEDS ORDERED: AUGMENTIN 875-1 EAC1 ORAL (18:12)
[2019-10-25 18:25] VITALS: BP 133/89
--- NOTE | 2019-10-25 18:25 | NUR ---
ED Nurse Note: Pt cleared by health care Provider for discharge. DC instructions/prescription was given and explained to pt and verbalized understanding of teachings. All medical deviecs such as ID band removed. Pt is AAO x4, ambulatory and left with all personal belongings.
[2019-10-25] MEDS ORDERED: Augmentin 875mg Tab ORAL ONE (18:30)
== END 2019-10-25 18:45 | disposition home or self-care (01) ==
LOC: EMR 17:00
DX: R19.7 Diarrhea, unspecified (principal); K52.9 Noninfective gastroenteritis and colitis, unspecified; S90.562A Insect bite (nonvenomous), left ankle, initial encounter; L08.9 Local infection of the skin and subcutaneous tissue, unspecified; W57.XXXA Bitten or stung by nonvenomous insect and other nonvenomous arthropods, initial encounter; Z88.8 Allergy status to other drugs, medicaments and biological substances; Z86.19 Personal history of other infectious and parasitic diseases; K42.9 Umbilical hernia without obstruction or gangrene
CPT/HCPCS: 36415; 74176; 80053; 80307; 81003; 83690; 84484; 85025; 85610; 85730; 93005; 96374; J1885; Z7502; 99284

== ENCOUNTER 2019-11-01 12:34 | Emergency (ER) | payer OTHER ==
[~2019-11-01] VITALS: Ht 165.1 cm; Wt 68.0 kg
[~2019-11-01 12:34] MED LIST changes: +DICYCLOMINE HCL10 MG ORAL
[2019-11-01 12:40] VITALS: BP 123/84
--- NOTE | 2019-11-01 12:47 | NUR ---
ED Nurse Note: Pt. aaox4. ambulatory. PT walked into ED for C/O a " infected insect bite" to right lower hip area x 2 weeks. pt reports taking augmentin but stopoed because it was giving her stomach issues. no s/s of acute distress noted at this time. Per pt. she took augmentin and started having "stomach issues".
--- NOTE | 2019-11-01 13:20 | Emergency Room Report ---
History of Present Illness General Chief Complaint: Skin Rash/Abscess Source: Patient Present Illness HPI Disclaimer: Please note that this report is being documented using DRAGON technology. This can lead to erroneous entry secondary to incorrect interpretation by the dictating instrument. HPI: 53-year-old female presents for evaluation of bug bite. Patient states she was in the emergency department last week complaining of diarrhea and bug bites. States he was diagnosed with cellulitis on the right ankle and buttock and prescribed Augmentin for cellulitis and for mild colitis. States she only tolerated 3 days of the Augmentin because it was upsetting her stomach. The bug bite on the ankle resolved however the one on the buttock persisted. States this patient will sit down. Denies bleeding or discharge. Denies swelling. Denies fever, chills. She reports epigastric discomfort and is scheduled to see bunch breaker machine operator next month. She is not taking antacids, nausea medication. Denies vomiting. Reports mild intermittent diarrhea still but denies hematuria, hematochezia, melena. PMH: Reviewed PSH: Reviewed Allergies: Azithromycin, Keflex, doxycycline, Macrobid Social Hx: Reviewed Allergies: Coded Allergies: DOXYCYCLINE (Verified Allergy, Mild, Rash, 04/18/18) AZITHROMYCIN (Verified Allergy, Unknown, 04/18/18) NITROFURANTOIN (Verified Allergy, Unknown, 04/18/18) CEPHALEXIN (Verified Adverse Reaction, Mild, 04/18/18) pt states mild rash/sob occuring when using keflex COVID-19 Screening Contact w/high risk pt: No Experienced COVID-19 symptoms?: No COVID-19 Testing performed INORGANIC CHEMISTRY PROFESSOR: No Patient History Last Menstrual Period: NA Nursing Documentation-PMH Past Medical History: No History, Except For Hx Cardiac Problems: No Hx Hypertension: No Hx Pacemaker: No Hx Asthma: Yes Hx COPD: No Hx Diabetes: No Hx Cancer: No Hx Gastrointestinal Problems: Yes - Hepatitis C Hx Dialysis: No Hx Neurological Problems: No Hx Cerebrovascular Accident: No Hx Seizures: No Review of Systems All Other Systems: negative except mentioned in HPI Physical Exam Vital Signs Date Time Temp Pulse Resp B/P (MAP) Pulse Ox O2 Delivery O2 Flow Rate FiO2 11/01/19 12:40 97.9 99 17 123/84 (97) 98 Room Air General: Awake and alert, no acute distress HEENT: NC/AT. EOMI. Resp: Normal work of breathing Skin: Intact. There is a 1 cm erythematous region with apparent burst pustule over the right buttock. Mild surrounding edema and erythema. No warmth. No fluctuance. No active bleeding or discharge. MSK: Normal tone and bulk. Moving all extremities. No obvious deformity. Neuro: Awake and alert. Mentating appropriately Medical Decision Making Diagnostic Impression: Primary Impression: Cellulitis ER Course 53-year-old female recently discharged on Augmentin for cellulitis and colitis presents for persistent skin lesion on the right buttock. Arrives in stable condition, no acute distress, afebrile, no vomiting and otherwise well- appearing. It does appear she has a mild cellulitis on the right buttock that would require antibiotics. Given her numerous allergies she will be started on Bactrim and sent to her PMD for follow-up. Regarding her epigastric discomfort will start on Pepcid and prescribed Maalox as well. She states is a chronic issue and is scheduled to see a bunch breaker machine operator but currently no vomiting, no fever and is able to eat and drink. Stable for outpatient follow-up. Do not believe she requires emergent labs or imaging at this time. She is instructed to return with new or worsening symptoms. Last Vital Signs Date Time Temp Pulse Resp B/P (MAP) Pulse Ox O2 Delivery O2 Flow Rate FiO2 11/01/19 12:40 97.9 99 17 123/84 98 Room Air Disposition: HOME, SELF-CARE Condition: Stable Scripts Mag Hydrox/Al Hydrox/Simeth (MAALOX MAXIMUM STRENGTH SUSP) 355 Ml Oral.susp 355 ML PO TID, #355 ML Prov: Pepe Goldman MD 11/01/19 Famotidine* (Pepcid 20mg tablet*) 20 Mg Tablet 20 MG ORAL DAILY, #30 TAB 0 Refills Prov: Pepe Goldman MD 11/01/19 Trimethoprim/Sulfamethoxazole 160/800* (BACTRIM DS TABLET*) 1 Each Tablet 1 TAB ORAL Q12H, #10 TAB 0 Refills Prov: Pepe Goldman MD 11/01/19 Referrals: NON PHYSICIAN (PCP) Pepe Goldman MD Nov 01, 2019 13:19
[2019-11-01] MEDS ORDERED: BACTRIM DS TAB1 EAC1 ORAL (13:21)
[2019-11-01] MEDS ORDERED: MAALOX MAXIMUM355 M1 PO (13:21)
[2019-11-01] MEDS ORDERED: FAMOTIDINE20 MG ORAL (13:21)
[2019-11-01 13:38] VITALS: BP 128/86
== END 2019-11-01 13:38 | disposition home or self-care (01) ==
LOC: EMR 13:04
DX: L03.317 Cellulitis of buttock (principal); Z88.1 Allergy status to other antibiotic agents; Z86.19 Personal history of other infectious and parasitic diseases
CPT/HCPCS: 99282

== ENCOUNTER 2019-11-21 16:43 | Emergency (ER) | payer OTHER ==
[~2019-11-21] VITALS: Ht 165.1 cm; Wt 68.0 kg
[~2019-11-21 16:43] MED LIST changes: +FAMOTIDINE20 MG ORAL; +MAALOX MAXIMUM355 M1 PO
--- NOTE | 2019-11-21 17:00 | NUR ---
ED Nurse Note: Pt walked in from home c/o seeing white flashes in her right eye since yesterday. Pt reports difficulty seeing d/t the flashes. Respirations even and unlabored on room air. Vitals stable as documented. Pt wears glasses. A+Ox4, speaking in complete sentences.
[2019-11-21 17:15] VITALS: BP 122/71
[2019-11-21] MEDS ORDERED: Fluorescein Strips RIGHT EYE ONE (17:15)
[2019-11-21] MEDS ORDERED: Tetracaine 0.5% Opth 4ml Soln RIGHT EYE ONE (17:15)
--- NOTE | 2019-11-21 17:48 | NUR ---
ELOPEMENT: Pt left without exams being done by ED PA
--- NOTE | 2019-11-21 17:48 | NUR ---
ED Nurse Note: pt not in her room or in the lobby.
--- NOTE | 2019-11-21 18:20 | NUR ---
ED Nurse Note: Medications wasted in med room as the patient eloped and examination was not done. did not waste medication using the pyxsis.
--- NOTE | 2019-11-21 19:14 | Emergency Room Report ---
History of Present Illness General Chief Complaint: Eye Problems Present Illness HPI This patient left prior to evaluation by medical provider. Allergies: Coded Allergies: DOXYCYCLINE (Verified Allergy, Mild, Rash, 04/18/18) AZITHROMYCIN (Verified Allergy, Unknown, 04/18/18) NITROFURANTOIN (Verified Allergy, Unknown, 04/18/18) CEPHALEXIN (Verified Adverse Reaction, Mild, 04/18/18) pt states mild rash/sob occuring when using keflex COVID-19 Screening Contact w/high risk pt: No Experienced COVID-19 symptoms?: No COVID-19 Testing performed PHARMACEUTICAL SCIENTIST: No Nursing Documentation-PMH Hx Cardiac Problems: No Hx Hypertension: No Hx Pacemaker: No Hx Asthma: Yes Hx COPD: No Hx Diabetes: No Hx Cancer: No Hx Gastrointestinal Problems: Yes - Hepatitis C Hx Dialysis: No Hx Neurological Problems: No Hx Cerebrovascular Accident: No Hx Seizures: No Physical Exam Vital Signs Date Time Temp Pulse Resp B/P (MAP) Pulse Ox O2 Delivery O2 Flow Rate FiO2 11/21/19 16:55 98.6 91 20 117/77 (90) 94 Room Air Eyes: bilateral eye visual acuity - Right 20/30, left 20/25, and both 20/20 - w. glasses Medical Decision Making PA Attestation Dr. Ferguson Is my supervising Physician whom patient management has been discussed with. ER Course This patient left prior to evaluation by medical provider. Last Vital Signs Date Time Temp Pulse Resp B/P (MAP) Pulse Ox O2 Delivery O2 Flow Rate FiO2 11/21/19 17:15 98.0 79 20 122/71 96 Room Air Disposition: LEFT W/OUT BEING SEEN Condition: Unknown Oumou Jamison Nov 21, 2019 19:14
== END 2019-11-21 18:15 | disposition left against medical advice (07) ==
LOC: EMR 17:15
DX: Z53.21 Procedure and treatment not carried out due to patient leaving prior to being seen by health care provider (principal)

== ENCOUNTER 2020-02-16 16:11 | Emergency (ER) | payer OTHER ==
[~2020-02-16] VITALS: Ht 162.6 cm; Wt 70.3 kg
--- NOTE | 2020-02-16 16:40 | Emergency Room Report ---
History of Present Illness General Chief Complaint: Upper Extremity Injury Source: Patient Present Illness HPI The patient presents with 2 problems. First yesterday evening a sales route driver helper rolled a window up that crushed her right thumb. It was stuck for a few seconds. Cause bleeding at the time. She is complaining about significant pain and little bit of numbness to the tip of her thumb. She did not take any medication for this. She rates the pain 8/10 in her thumb. It throbs and is aching. Second problem is complaining about abdominal pain for a week. She was seen several months ago and diagnosed with colitis. She denies any fevers or chills. She had some diarrhea initially without any vomiting. She has been taking a lot of Pepto-Bismol and her stools have been dark color she feels secondary to that. he denies dysuria. She has postnasal menopausal at this time. Patient denies exposure to COVID-19 positive contacts. No sore throat, chest pain, palpitations, nausea, vomiting, diarrhea, dysuria, shortness of breath, visual changes, dizziness, headache. Allergies: Coded Allergies: DOXYCYCLINE (Verified Allergy, Mild, Rash, 04/18/18) AZITHROMYCIN (Verified Allergy, Unknown, 04/18/18) NITROFURANTOIN (Verified Allergy, Unknown, 04/18/18) CEPHALEXIN (Verified Adverse Reaction, Mild, 04/18/18) pt states mild rash/sob occuring when using keflex COVID-19 Screening Contact w/high risk pt: No Experienced COVID-19 symptoms?: No COVID-19 Testing performed SAMPLE EXAMINER: No Patient History Past Medical History: see triage record, asthma, psych hx Social History: Reports: smoking Social History Narrative From home Now: No Reviewed Nursing Documentation: PMH: Agreed; PSxH: Agreed Nursing Documentation-PMH Past Medical History: No History, Except For Hx Cardiac Problems: No Hx Hypertension: No Hx Pacemaker: No Hx Asthma: Yes Hx COPD: No Hx Diabetes: No Hx Cancer: No Hx Gastrointestinal Problems: Yes - Hepatitis C Hx Dialysis: No Hx Neurological Problems: No Hx Cerebrovascular Accident: No Hx Seizures: No Review of Systems All Other Systems: negative except mentioned in HPI Physical Exam Vital Signs Date Time Temp Pulse Resp B/P (MAP) Pulse Ox O2 Delivery O2 Flow Rate FiO2 02/16/20 16:13 97.0 87 16 118/79 (92) 96 Room Air Sp02 EP Interpretation: reviewed, normal General Appearance: well appearing, no apparent distress, GCS 15 Head: normocephalic Eyes: bilateral eye normal inspection ENT: moist mucus membranes Neck: supple Respiratory: lungs clear, normal breath sounds Cardiovascular #1: regular rate, rhythm Cardiovascular #2: 2+ radial (R) Gastrointestinal: normal inspection, normal bowel sounds, no mass, non-di stended, no guarding, no rebound, tenderness - Reported mid abdomen and upper Musculoskeletal: back normal, normal range of motion, digits/nails normal - Except right thumb, gait/station normal, tender - Tip of right thumb without sub ungual hematoma Neurologic: alert, oriented x3, sensory deficit - Subjective numbness tip of thumb Psychiatric: mood/affect normal Skin: warm/dry, laceration - Superficial right of the nail end Medical Decision Making Diagnostic Impression: Primary Impression: Crushing injury of right thumb Qualified Codes: S67.01XA - Crushing injury of right thumb, initial en counter Additional Impression: Abdominal pain Qualified Codes: R10.13 - Epigastric pain ER Course Patient presents with 2 problems. One is crush injury to her right thumb. There is no subungual hematoma and there is a superficial laceration. Fracture is doubted and x-rays not indicated. She is requesting a shot of Toradol. She also needs a tetanus vaccination and bacitracin. The second problem is abdominal pain. She has a nonsurgical abdomen at this time. She has had UTIs and yeast vaginitis in the past and we will check urine. She is requesting a shot of Toradol for this. Has been taking a lot of Pepto- Bismol this may be a factor. Pepcid will be administered also. No labs or im aging are indicated aside from the urinalysis. Patient improved with treatment. Discussed treatment plan and outpatient observation for abdominal pain. Patient stable for outpatient observation and treatment. Laboratory Tests Test 02/16/20 17:20 Urine Color Pale yellow Urine Appearance Clear Urine pH 8 (4.5-8.0) Urine Specific [place] 1.010 (1.005-1.035) Urine Protein Negative (NEGATIVE) Urine Glucose (UA) Negative (NEGATIVE) Urine Ketones Negative (NEGATIVE) Urine Blood 1+ (NEGATIVE) H Urine Nitrite Negative (NEGATIVE) Urine Bilirubin Negative (NEGATIVE) Urine Urobilinogen Normal MG/DL (0.0-1.0) Urine Leukocyte Esterase Negative (NEGATIVE) Urine RBC 2-4 /HPF (0 - 2) H Urine WBC 0-2 /HPF (0 - 2) Urine Squamous Epithelial Cells Few /LPF (NONE/OCC) Urine Bacteria Few /HPF (NONE) Last Vital Signs Date Time Temp Pulse Resp B/P (MAP) Pulse Ox O2 Delivery O2 Flow Rate FiO2 02/16/20 18:35 97.0 16 118/79 96 Room Air 02/16/20 16:13 87 Status: improved Disposition: HOME, SELF-CARE Condition: Improved Scripts Famotidine* (Pepcid 20mg tablet*) 20 Mg Tablet 20 MG ORAL DAILY for abdominal pain, #20 TAB 0 Refills Prov: Henri Ramos MD 02/16/20 Hydrocodone Bit/Acetaminophen 5-325* (NORCO 5-325 TABLET*) 1 Each Tablet 1 TAB ORAL Q6H PRN for FOR PAIN, #8 TAB 0 Refills Prov: Henri Ramos MD 02/16/20 Bacitracin (Bacitracin) 28.4 Gm Oint...g. 1 APPLIC TOPIC BID, #20 GM Prov: Henri Ramos MD 02/16/20 Henri Ramos MD Feb 16, 2020 16:40
[2020-02-16] MEDS ORDERED: BACITRACIN15 GM TOPIC (16:43)
[2020-02-16] MEDS ORDERED: NORCO 5-325 TA1 EAC1 ORAL (16:43)
[2020-02-16] MEDS ORDERED: FAMOTIDINE20 MG ORAL (16:43)
[2020-02-16] MEDS: Ketorolac 30mg Inj IM ONE (16:53)
[2020-02-16] MEDS: Bacitracin Oint UD TOPIC ONE (16:53)
[2020-02-16] MEDS: Tetanus/Diptheria/Pertussis IM ONE (16:54)
--- NOTE | 2020-02-16 17:45 | NUR ---
ED Nurse Note:pt. had right arm jemmed in the window, pain meds were given
[2020-02-16 17:52] LABS: APPEARANCE,URINE CLEAR; BILIRUBIN, URINE NEGATIVE (NEGATIVE); COLOR,URINE PALE YELLOW; GLUCOSE, URINE (UA) NEGATIVE (NEGATIVE); KETONES,URINE NEGATIVE (NEGATIVE); LEUKOCYTE ESTERASE ,URINE NEGATIVE (NEGATIVE); NITRITE,URINE NEGATIVE (NEGATIVE); PH,URINE 8 (4.5-8.0); PROTEIN,URINE NEGATIVE (NEGATIVE); UROBILINOGEN,URINE NORMAL MG/DL (0.0-1.0)
[2020-02-16 17:57] VITALS: BP 118/79
[2020-02-16 18:35] VITALS: BP 118/79
== END 2020-02-16 18:35 | disposition home or self-care (01) ==
LOC: EMR 16:25
DX: S67.01XA Crushing injury of right thumb, initial encounter (principal); R10.13 Epigastric pain; W23.0XXA Caught, crushed, jammed, or pinched between moving objects, initial encounter; Y93.89 Activity, other specified; Y92.810 Car as the place of occurrence of the external cause; J45.909 Unspecified asthma, uncomplicated; Z79.899 Other long term (current) drug therapy; Z88.1 Allergy status to other antibiotic agents; Z88.8 Allergy status to other drugs, medicaments and biological substances
CPT/HCPCS: 81003; 90471; 90715; 96372; J1885; Z7502; 99283

== ENCOUNTER 2020-02-27 16:36 | Emergency (ER) | payer OTHER ==
[~2020-02-27] VITALS: Ht 165.1 cm; Wt 68.0 kg
[~2020-02-27 16:36] MED LIST changes: +BACITRACIN15 GM TOPIC; +NORCO 5-325 TA1 EAC1 ORAL
[2020-02-27 16:38] VITALS: BP 129/84
--- NOTE | 2020-02-27 16:48 | NUR ---
ED Nurse Note: Patient from [facility] and walked in due to dizziness and disorientation. Pt states she was seen at [place] and they gave her fluids and told her that she was dehydrated. Patient also reports symptoms started after she took TDAP vaccine here at [facility] 1 week ago. pt is AAO x4, ambulates with steady gait with non labored breathing.
--- NOTE | 2020-02-27 16:56 | Emergency Room Report ---
History of Present Illness General Chief Complaint: General Complaint Source: Patient Present Illness HPI 54-year-old female with no relevant past medical history here with lightheadedness. Patient says that about 1 week ago she was here after a crush injury to her right thumb in which she received a Tdap vaccination. She says that starting the next day she began to feel generally lightheaded every time she stood up. Denies syncope or presyncope. She went to an urgent care 6 days ago and she said that they took blood tests and "they told me that I was dehydrated" and she was given juice with no other interventions. Says that despite this her symptoms have continued. Denies headache, vision changes, fevers, chills, chest pain, palpitations, shortness of breath, back pain, abdominal pain or nausea, vomiting, diarrhea, dysuria. She says that about a week earlier she had a short bout of diarrhea that has since resolved. 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 Nursing Documentation-PMH Past Medical History: No History, Except For Hx Cardiac Problems: No Hx Hypertension: No Hx Pacemaker: No Hx Asthma: Yes Hx COPD: No Hx Diabetes: No Hx Cancer: No Hx Gastrointestinal Problems: Yes - Hepatitis C Hx Dialysis: No Hx Neurological Problems: No Hx Cerebrovascular Accident: No Hx Seizures: No Review of Systems All Other Systems: negative except mentioned in HPI Physical Exam Vital Signs Date Time Temp Pulse Resp B/P (MAP) Pulse Ox O2 Delivery O2 Flow Rate FiO2 02/27/20 16:38 98.6 97 16 129/84 (99) 100 Room Air Sp02 EP Interpretation: reviewed, normal General Appearance: no apparent distress, alert, non-toxic Head: normocephalic, atraumatic Eyes: bilateral eye normal inspection, bilateral eye PERRL ENT: hearing grossly normal, normal pharynx, no angioedema, normal voice Neck: full range of motion, supple/symm/no masses Respiratory: chest non-tender, lungs clear, normal breath sounds, speaking full sentences Cardiovascular #1: regular rate, rhythm, no edema Cardiovascular #2: 2+ carotid (R), 2+ carotid (L), 2+ radial (R), 2+ radial (L), 2+ dorsalis pedis (R), 2+ dorsalis pedis (L) Gastrointestinal: normal bowel sounds, non tender, soft, non-distended, no guarding, no rebound Rectal: deferred Genitourinary: normal inspection, no CVA tenderness Musculoskeletal: back normal, normal range of motion, gait/station normal, non- tender Neurologic: alert, motor strength/tone normal, oriented x3, sensory intact, responsive, speech normal Psychiatric: judgement/insight normal, memory normal, mood/affect normal, no suicidal/homicidal ideation Lymphatic: no adenopathy Medical Decision Making Diagnostic Impression: Primary Impression: Encounter for generalized patient complaints Additional Impression: Lightheaded ER Course EKG: NSR, no ischemia, intervals WNL. No ectopy. 87 bpm Rhythm strip: patient monitored for arrhythmias - no malignant dysrhythmias, runs of PVCs, nor pauses noted Laboratory Tests Test 02/27/20 17:01 White Blood Count 7.9 K/UL (4.8-10.8) Red Blood Count 4.81 M/UL (4.20-5.40) Hemoglobin 13.6 G/DL (12.0-16.0) Hematocrit 39.0 % (37.0-47.0) Mean Corpuscular Volume 81 FL (80-99) Mean Corpuscular Hemoglobin 28.2 PG (27.0-31.0) Mean Corpuscular Hemoglobin Concent 34.8 G/DL (32.0-36.0) Red Cell Distribution Width 14.1 % (11.6-14.8) Platelet Count 218 K/UL (150-450) Mean Platelet Volume 7.5 FL (6.5-10.1) Neutrophils (%) (Auto) 58.9 % (45.0-75.0) Lymphocytes (%) (Auto) 27.6 % (20.0-45.0) Monocytes (%) (Auto) 8.3 % (1.0-10.0) Eosinophils (%) (Auto) 2.7 % (0.0-3.0) Basophils (%) (Auto) 2.5 % (0.0-2.0) H Urine Color Pale yellow Urine Appearance Clear Urine pH 6 (4.5-8.0) Urine Specific [place] 1.010 (1.005-1.035) Urine Protein Negative (NEGATIVE) Urine Glucose (UA) Negative (NEGATIVE) Urine Ketones Negative (NEGATIVE) Urine Blood 1+ (NEGATIVE) H Urine Nitrite Negative (NEGATIVE) Urine Bilirubin Negative (NEGATIVE) Urine Urobilinogen Normal MG/DL (0.0-1.0) Urine Leukocyte Esterase Negative (NEGATIVE) Urine RBC 2-4 /HPF (0 - 2) H Urine WBC 0-2 /HPF (0 - 2) Urine Squamous Epithelial Cells Few /LPF (NONE/OCC) Urine Bacteria Occasional /HPF (NONE) Sodium Level 140 MMOL/L (136-145) Potassium Level 3.6 MMOL/L (3.5-5.1) Chloride Level 105 MMOL/L (98-107) Carbon Dioxide Level 28 MMOL/L (21-32) Anion Gap 7 mmol/L (5-15) Blood Urea Nitrogen 9 mg/dL (7-18) Creatinine 0.8 MG/DL (0.55-1.30) Estimated Glomerular Filtration Rate > 60 mL/min (>60) Glucose Level 101 MG/DL (74-106) Calcium Level 9.1 MG/DL (8.5-10.1) Total Bilirubin 0.4 MG/DL (0.2-1.0) Aspartate Amino Transferase (AST) 30 U/L (15-37) Alanine Aminotransferase (ALT) 41 U/L (12-78) Alkaline Phosphatase 85 U/L (46-116) Troponin I 0.000 ng/mL (0.000-0.056) Total Protein 7.4 G/DL (6.4-8.2) Albumin 3.9 G/DL (3.4-5.0) Globulin 3.5 g/dL Albumin/Globulin Ratio 1.1 (1.0-2.7) 54-year-old female here with 1 week of intermittent generalized malaise. Patient normal vital signs throughout her stay in the emergency department including a normal blood pressure and normal heart rate. EKG was unremarkable. CBC, CMP, urinalysis normal. LFTs unremarkable. Patient says that she does have a history of hepatitis C but is not currently taking any medications. She was given 1 L of IV normal saline and said that she felt improved. Troponin was negative. She will follow-up with her primary care provider. Discharged in stable condition. Last Vital Signs Date Time Temp Pulse Resp B/P (MAP) Pulse Ox O2 Delivery O2 Flow Rate FiO2 02/27/20 16:48 97 16 Room Air 02/27/20 16:38 98.6 129/84 100 Referrals: [facility],REFERRING (PCP) Samuel Jones M.D. Feb 27, 2020 16:56
--- NOTE | 2020-02-27 17:09 | NUR ---
ED Nurse Note: Collected blood specimen and urine then sent.
--- NOTE | 2020-02-27 17:42 | NUR ---
ED Nurse Note: patient is resting on bed with no distress. Speaks in full sentences.
[2020-02-27 17:53] LABS: APPEARANCE,URINE CLEAR; BILIRUBIN, URINE NEGATIVE (NEGATIVE); COLOR,URINE PALE YELLOW; GLUCOSE, URINE (UA) NEGATIVE (NEGATIVE); KETONES,URINE NEGATIVE (NEGATIVE); LEUKOCYTE ESTERASE ,URINE NEGATIVE (NEGATIVE); NITRITE,URINE NEGATIVE (NEGATIVE); PH,URINE 6 (4.5-8.0); PROTEIN,URINE NEGATIVE (NEGATIVE); UROBILINOGEN,URINE NORMAL MG/DL (0.0-1.0)
[2020-02-27 17:55] LABS: ANION GAP 7 mmol/L (5-15); BLOOD UREA NITROGEN 9 mg/dL (7-18); CALCIUM 9.1 MG/DL (8.5-10.1); CARBON DIOXIDE 28 MMOL/L (21-32); CHLORIDE 105 MMOL/L (98-107); CREATININE 0.8 MG/DL (0.55-1.30); POTASSIUM 3.6 MMOL/L (3.5-5.1); SODIUM 140 MMOL/L (136-145)
[2020-02-27 18:00] LABS: ALANINE AMINOTRANSFERASE 41 U/L (12-78); ALBUMIN 3.9 G/DL (3.4-5.0); ALBUMIN/GLOBULIN RATIO 1.1 (1.0-2.7); ALKALINE PHOSPHATASE 85 U/L (46-116); ASPARTATE AMINO TRANSFERASE 30 U/L (15-37); BASOPHILS % (AUTO) 2.5 % (0.0-2.0); BILIRUBIN,TOTAL 0.4 MG/DL (0.2-1.0); EOSINOPHILS % (AUTO) 2.7 % (0.0-3.0); HEMOGLOBIN 13.6 G/DL (12.0-16.0); LYMPHOCYTES % (AUTO) 27.6 % (20.0-45.0); MEAN CORPUSCULAR VOLUME 81 FL (80-99); MONOCYTES % (AUTO) 8.3 % (1.0-10.0); NEUTROPHILS % (AUTO) 58.9 % (45.0-75.0); PLATELET COUNT 218 K/UL (150-450); RED BLOOD COUNT 4.81 M/UL (4.20-5.40); RED CELL DISTRIBUTION WIDTH 14.1 % (11.6-14.8); WHITE BLOOD COUNT 7.9 K/UL (4.8-10.8)
[2020-02-27 18:16] VITALS: BP 118/75
--- NOTE | 2020-02-27 18:16 | NUR ---
ER DISCHARGE NOTE: Patient is cleared to be discharged per ERMD, pt is aox4, on room air, with stable vital signs. pt was given dc instructions, pt was able to verbalize understanding, pt id band and iv site removed without complications. pt is able to ambulate with steady gait. pt took all belongings.
== END 2020-02-27 18:16 | disposition home or self-care (01) ==
LOC: EMR 16:50
DX: Z76.89 Persons encountering health services in other specified circumstances (principal); R42 Dizziness and giddiness; J45.909 Unspecified asthma, uncomplicated; Z88.1 Allergy status to other antibiotic agents; Z88.8 Allergy status to other drugs, medicaments and biological substances
CPT/HCPCS: 36415; 80053; 81003; 84484; 85025; 93005; 96360; Z7502; 99284